=== PATIENT | male | born 1940 | race Caucasian/White ===

== ENCOUNTER 2016-06-12 13:01 | Observation (INO) ==
[2016-06-12] MEDS ORDERED: Nitroglycerin 0.4 MG TAB.SUBL SL ONE (13:40)
[2016-06-12] MEDS ORDERED: Aspirin 81 MG TAB.CHEW PO ONE (13:40)
--- NOTE | 2016-06-12 13:56 | Emergency Department Note ---
Disposition Clinical Impression: Chest pain Qualifiers: Chest pain type: precordial pain Qualified Code(s): R07.2 - Precordial pain Disposition: Admitted As Inpatient Condition: Fair Chest Pain HPI - General Chief Complaint: ED Chest Pain Stated Complaint: Chest pain Time Seen by Provider: 06/12/16 13:32 Source: patient Limitations: no limitations Vital Signs Reviewed: Yes Nursing Notes Reviewed: Yes - History of Present Illness HPI Narrative: Mr. Taylor, a 75 yo male, presents from home by POV with chief complaint chest pain. Onset 5 days ago and previously intermittent. Located focally over his left chest. Described as sharp stabbing, nonradiating. Patient has chronic weakness and dyspnea which have not been worsened over this time period. Patient states his pain is improved with nitroglycerin. Patient has this pain at rest and it is worsened by mild exertion. Patient currently on dual antiplatelet therapy: aspirin, effient. Patient also on Ranexa. PMH: CAD, hypertension, hyperlipidemia. Patient states he has had 10 stents, most recent placed February. States that during the month of February 2016 he had 2 heart attacks. Data Coordinator: Dr. Figueroa. Severity scale (1-10): 0 - Related Data Home Medications Medication Instructions Recorded Confirmed Amlodipine Besylate 10 mg PO DAILY 12/12/15 06/12/16 Docusate [Colace] 100 mg PO BID PRN 12/12/15 06/12/16 Ergocalciferol (VITAMIN D2) 50,000 unit PO Q2W 12/12/15 06/12/16 [Vitamin D2 (50,000 UNIT)] GlipiZIDE [Glipizide] 10 mg PO BID 12/12/15 06/12/16 Insulin Glargine [Lantus] 85 unit SQ HS 12/12/15 06/12/16 Isosorbide MONOnitrate [Isosorbide 120 mg PO QAM 12/12/15 06/12/16 Mononitrate ER] Lisinopril [Zestril] 5 mg PO DAILY 12/12/15 06/12/16 Loratadine [Claritin] 10 mg PO HS 12/12/15 06/12/16 Metformin [Glucophage] 500 mg PO TIDWM 12/12/15 06/12/16 Metoprolol [Lopressor] 100 mg PO BID 12/12/15 06/12/16 Nitroglycerin [Nitrostat] 0.4 mg SL Q5M PRN 12/12/15 06/12/16 [place]-3/Dha/Epa/Fish Oil [Fish Oil 2 each PO QAM 12/12/15 06/12/16 1,000 mg Softgel] Polyvinyl Alcohol [Artificial 1 drop BOTH EYES QID 12/12/15 06/12/16 Tears] Potassium Chloride [K-Tab ER] 10 meq PO DAILY 12/12/15 06/12/16 Rosuvastatin [Crestor] 40 mg PO DAILY 12/12/15 06/12/16 Tamsulosin [Flomax] 0.4 mg PO HS 12/12/15 06/12/16 Amitriptyline [Elavil] 50 mg PO HS 06/12/16 06/12/16 Aspirin Enteric Coated [Aspirin EC] 81 mg PO DAILY 06/12/16 06/12/16 Omeprazole [PriLOSEC] 20 mg PO DAILY 06/12/16 06/12/16 Ranolazine [Ranexa] 500 mg PO BID 06/12/16 06/12/16 Previous Rx's Medication Instructions Recorded Prasugrel [Effient] 10 mg PO DAILY #30 tablet 02/07/16 Allergies Allergy/AdvReac Type Severity Reaction Status Date / Time No Known Allergies Allergy Verified 03/03/16 12:08 All systems ED: reviewed and negative except as stated. Constitutional: Denies: fever, chills, weakness Cardiovascular: Reports: chest pain. Denies: palpitations, dyspnea on exertion , orthopnea, edema, syncope Respiratory: Denies: cough, dyspnea Gastrointestinal: Denies: abdominal pain, nausea, vomiting, diarrhea, constipation, hematemesis, melena, hematochezia Musculoskeletal: Reports: back pain. Denies: neck pain Integumentary: Denies: rash Neurological: Denies: headache, weakness, numbness, paresthesias, confusion, vertigo Hematological/Lymphatic: Reports: easy bleeding, easy bruising Chest Pain PMH - Past Medical History Medical history: Reports: diabetes, hypertension, myocardial infarction Surgical history: Reports: coronary bypass (CABG) Psychiatric history: Reports: no psych history - Social History Smoking Status: Never smoker Alcohol use: Reports: none Drug use: Reports: none Physical Exam General: Patient is alert, oriented, and in no acute distress. HEENT: No facial asymmetry. Head is normocephalic and atraumatic. Trachea midline. Cardiovascular: Heart regular rate and rhythm without clicks, rubs, gallops, or murmurs. No JVD. PMI nondisplaced. No pedal edema. Evidence of sternotomy from CABG. Radial and posterior tibial pulses 2+. Respiratory: Symmetric chest rise with good respiratory effort. Bilateral breath sounds are clear without wheezing, crackles, or rhonchi. Abdomen: Bowel sounds present normoactive x-4 quadrants. Abdomen is soft, nondistended, and nontender. No organomegaly noted. Psych: Patient's affect is appropriate for situation. - General Limitations: no limitations General appearance: alert, in no apparent distress Course Course Narrative: Chest pain workup. Anticipate admission for chest pain, ACS rule out. Patient currently has chest pain; will begin nitroglycerin. Nitroglycerin trial: First nitroglycerin to patient's pain from 01/28-10/28 however it took his systolic blood pressure for 140s down to 100. Will discontinue nitroglycerin trial after the one dose due to concerns of blood pressure. Will provide Fentanyl with IV fluids. Cath 12/12/16 -Severe 3vv CAD. -Mild-moderate LV dysfunction. EF 40%. Laboratory today is relatively unremarkable; specifically troponin negative. There was a slight elevation in BNP however it was not significantly elevated and patient displays no signs of pulmonary edema or peripheral edema. 15:[address] Burroughs who agrees to accept the patient to his service. Vital Signs Temperature 97.8 F 06/12/16 13:12 Pulse Rate 100 06/12/16 13:12 Respiratory Rate 16 06/12/16 13:12 Blood Pressure 138/79 06/12/16 13:12 O2 Sat by Pulse Oximetry 100 06/12/16 13:12 Temperature 97.7 F 06/12/16 16:29 Pulse Rate 72 06/12/16 16:29 Respiratory Rate 16 06/12/16 16:29 Blood Pressure 147/66 06/12/16 16:29 O2 Sat by Pulse Oximetry 98 06/12/16 16:29 Oxygen Delivery Oxygen Delivery Room Air Chest Pain - Lab Data Result diagrams: 06/12/16 14:07 06/12/16 14:07 Lab Results 02/06/12/16 06/12/16 Range/Units 14:07 14:07 14:07 WBC 7.4 (4.3-11.1) K/mcL RBC 4.46 (4.19-5.50) M/mcL Hgb 10.7 L (12.9-16.9) g/dL Hct 35.1 L (37.5-50.1) % MCV 78.7 L (83.0-100.0) fL MCH 24.0 L (28.0-33.3) pg MCHC 30.5 L (31.6-35.5) g/dL RDW 15.7 H (11.5-14.5) % Plt Count 176 (140-400) K/mcL MPV 9.6 (9.4-12.4) fL Immature Gran % 0.4 (0-4) % Seg Neutrophils % 71.4 % Lymphocytes % 19.2 % Monocytes % 7.4 % Eosinophils % 1.3 % Basophils % 0.3 % Neutrophils # 5.3 (1.6-8.9) K/mcL Lymphocytes # 1.4 (0.6-4.6) K/mcL Monocytes # 0.6 (0.0-1.3) K/mcL Eosinophils # 0.1 (0.0-0.6) K/mcL Basophils # 0.0 (0.0-0.2) K/mcL PT 13.3 H (9.4-12.1) Seconds INR 1.2 APTT 28.3 (26.0-36.0) Seconds Sodium (136-145) mEq/L Potassium (3.5-4.5) mEq/L Chloride (98-109) mEq/L Carbon Dioxide (19-29) mEq/L BUN (8-26) mg/dL Creatinine (0.72-1.25) mg/dL Est GFR ( Amer) (> 60) Est GFR (Non-Af Amer) (> 60) BUN/Creatinine Ratio (6-26) Glucose (70-99) mg/dL Est Mean Plasma Glucose mg/dl Hemoglobin A1c ( - 5.6) % Calculated Osmolality (280-300) Calcium (8.6-10.8) mg/dL Troponin I (0-0.03) ng/mL B-Natriuretic Peptide 126 H (0-100) pg/mL 02/22/17 02/22/17 02/22/17 Range/Units 14:07 14:07 14:14 WBC (4.3-11.1) K/mcL RBC (4.19-5.50) M/mcL Hgb (12.9-16.9) g/dL Hct (37.5-50.1) % MCV (83.0-100.0) fL MCH (28.0-33.3) pg MCHC (31.6-35.5) g/dL RDW (11.5-14.5) % Plt Count (140-400) K/mcL MPV (9.4-12.4) fL Immature Gran % (0-4) % Seg Neutrophils % % Lymphocytes % % Monocytes % % Eosinophils % % Basophils % % Neutrophils # (1.6-8.9) K/mcL Lymphocytes # (0.6-4.6) K/mcL Monocytes # (0.0-1.3) K/mcL Eosinophils # (0.0-0.6) K/mcL Basophils # (0.0-0.2) K/mcL PT (9.4-12.1) Seconds INR APTT (26.0-36.0) Seconds Sodium 139 (136-145) mEq/L Potassium 4.0 (3.5-4.5) mEq/L Chloride 108 (98-109) mEq/L Carbon Dioxide 24 (19-29) mEq/L BUN 20 (8-26) mg/dL Creatinine 0.89 (0.72-1.25) mg/dL Est GFR ( Amer) > 60 (> 60) Est GFR (Non-Af Amer) > 60 (> 60) BUN/Creatinine Ratio 22 (6-26) Glucose 89 (70-99) mg/dL Est Mean Plasma Glucose 197 mg/dl Hemoglobin A1c 8.5 H ( - 5.6) % Calculated Osmolality 290 (280-300) Calcium 9.2 (8.6-10.8) mg/dL Troponin I 0.02 (0-0.03) ng/mL B-Natriuretic Peptide (0-100) pg/mL - Radiology Data Radiology results reviewed: Yes I reviewed the patient's radiology results. Chest X-Ray 06/12/16 13:32 IMPRESSION: No acute cardiopulmonary disease. D/ / Stan Ayala MD / Stan Ayala MD Interpreting Provider: Stan Ayala MD - EKG Data EKG attestation: Yes I reviewed and interpreted this EKG. EKG results narrative: EKG dated 06/12/16 interpreted as sinus rhythm with a rate of 81. Q waves present in lead 2. T-wave flattening in V5 and V6. Normal intervals OH 192, QRS 108, QT/QTC 352/39. Left axis. No previous EKG for comparison. Attestation Statement - Attestation Attestation: I examined this patient and my medical decision-making was reviewed with the OPEN DEVELOPER OPERATOR/PA/Advanced Practice Nurse/Resident Physician. I agree with the documented findings, disposition and treatment plan as described except to the extent set forth below. Patient to the emergency department she complaint of chest pain. Patient states he was sitting in his car and experienced stabbing pain in left side of his chest that was nonradiating. He states it resolved after nitroglycerin. Patient states he has an extensive history with heart attacks. States he had 2 of them in February. He states he has 10 stents. On exam he is sitting up in bed in no acute distress. Lungs are clear. Plan. Cardiac workup and likely observation.
[2016-06-12] MEDS ORDERED: *HR* FentaNYL (PF) 100 MCG/2 ML VIAL IVP ONE (14:15)
[2016-06-12] MEDS ORDERED: 0.9 % Sodium Chloride 1,000 ML IVC ONE (14:15)
[2016-06-12 14:19] LABS: Basophils % 0.3 %; Eosinophils # 0.1 K/mcL (0.0-0.6); Eosinophils % 1.3 %; Hematocrit 35.1 % (37.5-50.1); Hemoglobin 10.7 g/dL (12.9-16.9); Immature Granulocytes % 0.4 % (0-4); Lymphocytes # 1.4 K/mcL (0.6-4.6); Lymphocytes % 19.2 %; Mean Corpuscular HGB Conc 30.5 g/dL (31.6-35.5); Mean Corpuscular Volume 78.7 fL (83.0-100.0); Mean Platelet Volume 9.6 fL (9.4-12.4); Monocytes # 0.6 K/mcL (0.0-1.3); Monocytes % 7.4 %; Neutrophils # 5.3 K/mcL (1.6-8.9); Platelet Count 176 K/mcL (140-400); Red Blood Count 4.46 M/mcL (4.19-5.50); Red Cell Distribution Width 15.7 % (11.5-14.5); Segmented Neutrophils % 71.4 %
[2016-06-12 14:30] LABS: BUN/Creatinine Ratio 22 (6-26); Blood Urea Nitrogen 20 mg/dL (8-26); Calcium 9.2 mg/dL (8.6-10.8); Carbon Dioxide 24 mEq/L (19-29); Chloride 108 mEq/L (98-109); Glucose 89 mg/dL (70-99); Osmolality,Calculated 290 (280-300); Sodium 139 mEq/L (136-145); eGFR For African Americans > 60 (> 60); eGFR For Non-African Americans > 60 (> 60)
[2016-06-12 14:32] LABS: INR 1.2; Prothrombin Time 13.3 Seconds (9.4-12.1)
[2016-06-12] MEDS ORDERED: Ondansetron 4 MG/2 ML VIAL IV ONE (14:32)
[2016-06-12 14:35] LABS: Activated Partial Thrombo Time 28.3 Seconds (26.0-36.0)
[2016-06-12] MEDS ORDERED: Ondansetron 4 MG/2 ML VIAL IVP STA (14:58)
--- NOTE | 2016-06-12 15:37 | Cardiology Consult Note ---
Date of Encounter: 06/12/16 Time of Encounter: 15:34 Assessment and Plan Discussion w patient/family: The assessment and plan as outlined above was discussed with the patient and/or family members who expressed understanding and agreement. All questions were answered. Thank you for involving us in the care of your patient. Please call with any questions. Feel this pain is atypical . Suggest: pain control re check EKG in am trend cardiac enzymes , do not think this PE no indications for cath at present will follow d/w ER History of Present Illness Consult date: 06/12/16 History of present illness: Mr. Taylor is a 75 year old male with a known history of CAD, s/p multiple stents , last one being Feb 2016, s/p CABG x2 who now comes in with CP , right sided, increased with DB, and is reproducible on left side . Pt received a NTG in ER with a drop in pressure/ ? relieved by NTG Has been having some CP last few days . no sob, no cough , no pnd, orthopnea Past Med Surg Social Fam HX - Past Medical History Medical history: diabetes, hypertension, myocardial infarction Psychiatric history: no psych history - Past Surgical History Surgical History: coronary bypass (CABG) - Social History Smoking Status: Never smoker Smokeless Tobacco Status: No Alcohol use: none Drug use: none - Family History Mother Hx Family Endocrine Disorder: Yes (DM) Medications and Allergies Amlodipine Besylate 10 mg PO DAILY 12/12/15 [History] Docusate [Colace] 100 mg PO BID PRN 12/12/15 [History] Ergocalciferol (VITAMIN D2) [Vitamin D2 (50,000 UNIT)] 50,000 unit PO Q2W [History] GlipiZIDE [Glipizide] 10 mg PO BID 12/12/15 [History] Insulin Glargine [Lantus] 85 unit SQ HS 12/12/15 [History] Isosorbide MONOnitrate [Isosorbide Mononitrate ER] 120 mg PO QAM 12/12/15 [ History] Lisinopril [Zestril] 5 mg PO DAILY 12/12/15 [History] Loratadine [Claritin] 10 mg PO HS 12/12/15 [History] Metformin [Glucophage] 500 mg PO TIDWM 12/12/15 [History] Metoprolol [Lopressor] 100 mg PO BID 12/12/15 [History] Nitroglycerin [Nitrostat] 0.4 mg SL Q5M PRN 12/12/15 [History] [place]-3/Dha/Epa/Fish Oil [Fish Oil 1,000 mg Softgel] 2 each PO QAM 12/12/15 [ History] Polyvinyl Alcohol [Artificial Tears] 1 drop BOTH EYES QID 12/12/15 [History] Potassium Chloride [K-Tab ER] 10 meq PO DAILY 12/12/15 [History] Rosuvastatin [Crestor] 40 mg PO DAILY 12/12/15 [History] Tamsulosin [Flomax] 0.4 mg PO HS 12/12/15 [History] Prasugrel [Effient] 10 mg PO DAILY #30 tablet 02/07/16 [Rx] Amitriptyline [Elavil] 50 mg PO HS 06/12/16 [History] Aspirin Enteric Coated [Aspirin EC] 81 mg PO DAILY 06/12/16 [History] Omeprazole [PriLOSEC] 20 mg PO DAILY 06/12/16 [History] Ranolazine [Ranexa] 500 mg PO BID 06/12/16 [History] Allergies No Known Allergies Allergy (Verified 03/03/16 12:08) All Systems Review: A 10-system review of systems was performed and is negative for pertinent findings except as documented above in the HPI. - Cardiovascular Cardiovascular: chest pain at rest, chest pain with exertion Physical Examination Vital Signs, Last 4 Hours Temp Pulse Resp BP Pulse Ox 06/12/16 14:12 87 18 100/67 95 06/12/16 13:44 82 18 127/83 97 06/12/16 13:12 97.8 F 100 16 138/79 100 Cardiac: Other (Left sided CP is reproducible ) Results 06/12/16 14:07 06/12/16 14:07 Lab Results 06/12/16 06/12/16 06/12/16 14:07 14:07 14:07 WBC 7.4 Hgb 10.7 L Hct 35.1 L Plt Count 176 INR 1.2 APTT 28.3 Sodium Potassium Chloride Carbon Dioxide BUN Creatinine Glucose Calcium Troponin I B-Natriuretic Peptide 126 H 06/12/16 06/12/16 14:07 14:07 WBC Hgb Hct Plt Count INR APTT Sodium 139 Potassium 4.0 Chloride 108 Carbon Dioxide 24 BUN 20 Creatinine 0.89 Glucose 89 Calcium 9.2 Troponin I 0.02 B-Natriuretic Peptide - EKG Interpretation EKG results cardiology: no diagnostic ischemia (no acute changes, compared with last one) Consult Discharge Plan - Plan [facility]errals: [facility]Primary Care Provider[facility] -
[2016-06-12] MEDS ORDERED: *HR* Morphine 2 MG/ML SYRINGE IV ONE (15:49)
[2016-06-12] MEDS ORDERED: Ondansetron ODT 4 MG TAB.RAPDIS SL PRN (15:53)
[2016-06-12] MEDS ORDERED: Naloxone 0.4 MG/ML INJ IVP PRN (15:53)
[2016-06-12] MEDS ORDERED: Nitroglycerin 0.4 MG TAB.SUBL SL PRN (16:02)
[2016-06-12] MEDS ORDERED: Dextrose Gel 15 GM PO PRN ×2 (16:08)
[2016-06-12] MEDS ORDERED: *HR* Dextrose 50 % in Water (Syg) 50 ML SYRINGE IVP PRN (16:08)
[2016-06-12] MEDS ORDERED: D5% in Water 1,000 ML IV PRN (16:08)
--- NOTE | 2016-06-12 16:13 | Internal Med History&Physical ---
Date of Encounter: 06/12/16 Time of Encounter: 16:10 Assessment and Plan (1) Chest pain Current visit: No Status: Acute Patient reporting sharp, stabbing pain to left chest, non-radiating, somewhat relieved by nitro. Initial troponin negative at 0.02. EKG showed no ischemic changes compared to previous EKG. 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 Qualifiers: Chest pain type: precordial pain Qualified Code(s): R07.2 - Precordial pain (2) CAD (coronary artery disease) Current visit: No Status: Acute Patient with significant coronary artery disease history with reported 10 stents placed, most recently a NATALIA to his LAD in 01/2016, and 2 vessel CABG in July of 2014. He follows with Dr. Huerta as an outpatient. Cardiology consulted and do not feel he needs emergent cath. Continue home doses of Aspirin, Effient for dual anti-platelet therapy Continue home doses of Ranexa, metoprolol, and crestor Qualifiers: Coronary Disease-Associated Artery/Lesion type: [place] artery [place] vs. transplanted heart: [place] heart Associated angina: with stable angina Qualified Code(s): I25.118 - Atherosclerotic heart disease of [place] coronary artery with other forms of angina pectoris (3) IDDM (insulin dependent diabetes mellitus) Current visit: No Status: Chronic diabetic diet check blood sugars ACHS continue home basal dose of insulin Levemir 85u HS sliding scale correction dose ACHS hypoglycemic protocol. (4) HTN (hypertension) Current visit: No Status: Chronic continue home doses of amlodipine, lisinopril, metoprolol and ranexa. Qualifiers: Hypertension type: essential hypertension Qualified Code(s): I10 - Essential (primary) hypertension (5) DVT prophylaxis Current visit: No Status: Acute up to chair BID anti-embolic stockings Lovenox 40mg SQ daily Internal Medicine - H&P: HPI Chief complaint: chest pain Admitted From: Emergency Dept Plans for Post Hospital Care: Home History of present illness: Mr. Taylor is a 75 year old male with HTN, hyperlipidemia, type 2 diabetes, coronary artery disease s/p 2-vessel CABG 2014 and multiple coronary stents, most recently 01/2016, who presented to the ED today with chest pain. He reports the pain is a sharp, stabbing pain that first started on Friday. The pain would come and go, until today, when it was unrelieved and he decided to come in to the ED. He reports the pain does not radiate, was mildly relieved by nitro given in the ED. He reports the pain is accompanied by shortness of breath and numbness in bilateral hands, but denies any palpitations, lightheadedness. He has had some nausea, but denies abdominal pain, diarrhea, fever, chills, sweats. He is also reporting right sided low back pain that also comes and goes and is exacerbated by movement. Evaluation in the ED included troponin, which was negative at 0.02, EKG with no ischemic changes from previous EKG. Nitro was trialed on patient, but his blood pressure dropped , and he was given fentanyl and morphine for his pain. On exam, patient alert and oriented, in no distress. Heart has regular rate and rhythm, lungs clear to auscultation, patient has reproducible pain on palpation over right posterior hip. He is satting 99% on room air. Past Med Surg Social Fam HX - Past Medical History Source: patient Medical history: coronary artery disease, diabetes, GERD, hyperlipidemia, hypertension, myocardial infarction Psychiatric history: no psych history - Past Surgical History Surgical History: angioplasty/stent, coronary bypass (CABG), orthopedic, other ( right toe amputation) - Social History Smoking Status: Former smoker (remote) Smokeless Tobacco Status: No Alcohol use: none Drug use: none - Family History Mother Living Status: Hx Family Endocrine Disorder: Yes (DM) Father Living Status: Age at : 84 Cause of : [place] Brother Living Status: Cause of : CHF Sister Living Status: Hx Family Cardiac Disorders: Yes Hx Family Endocrine Disorder: Yes (diabetes) Internal Medicine - H&P: Meds Amlodipine Besylate 10 mg PO DAILY 12/12/15 [History] Docusate [Colace] 100 mg PO BID PRN 12/12/15 [History] Ergocalciferol (VITAMIN D2) [Vitamin D2 (50,000 UNIT)] 50,000 unit PO Q2W [History] GlipiZIDE [Glipizide] 10 mg PO BID 12/12/15 [History] Insulin Glargine [Lantus] 85 unit SQ HS 12/12/15 [History] Isosorbide MONOnitrate [Isosorbide Mononitrate ER] 120 mg PO QAM 12/12/15 [ History] Lisinopril [Zestril] 5 mg PO DAILY 12/12/15 [History] Loratadine [Claritin] 10 mg PO HS 12/12/15 [History] Metformin [Glucophage] 500 mg PO TIDWM 12/12/15 [History] Metoprolol [Lopressor] 100 mg PO BID 12/12/15 [History] Nitroglycerin [Nitrostat] 0.4 mg SL Q5M PRN 12/12/15 [History] [place]-3/Dha/Epa/Fish Oil [Fish Oil 1,000 mg Softgel] 2 each PO QAM 12/12/15 [ History] Polyvinyl Alcohol [Artificial Tears] 1 drop BOTH EYES QID 12/12/15 [History] Potassium Chloride [K-Tab ER] 10 meq PO DAILY 12/12/15 [History] Rosuvastatin [Crestor] 40 mg PO DAILY 12/12/15 [History] Tamsulosin [Flomax] 0.4 mg PO HS 12/12/15 [History] Prasugrel [Effient] 10 mg PO DAILY #30 tablet 02/07/16 [Rx] Amitriptyline [Elavil] 50 mg PO HS 06/12/16 [History] Aspirin Enteric Coated [Aspirin EC] 81 mg PO DAILY 06/12/16 [History] Omeprazole [PriLOSEC] 20 mg PO DAILY 06/12/16 [History] Ranolazine [Ranexa] 500 mg PO BID 06/12/16 [History] Allergies No Known Allergies Allergy (Verified 03/03/16 12:08) All Systems PM: A 10-system review of systems was performed and is negative for pertinent findings except as documented above in the HPI. - Constitutional Constitutional: no chills, no fever(s), no night sweats - EENT Eyes: no change in vision, no discharge, no pain, no photophobia Ears: no ear discharge, no ear pain, no tinnitus Nose, mouth and throat: no dysphagia, no nasal discharge, no neck pain, no sore throat - Cardiovascular Cardiovascular ROS IM: chest pain, dyspnea, no diaphoresis, no lightheadedness, no palpitations, no syncope - Respiratory Respiratory: no cough, no dyspnea, no wheezing, no excessive phlegm production - Gastrointestinal Gastrointestinal: nausea, no abdominal pain, no diarrhea, no hematemesis, no hematochezia, no melena, no vomiting - Musculoskeletal Musculoskeletal ROS IM: back pain, no numbness, no tingling - Integumentary Integumentary IM: no rash, no unusual bruising - Neurological Neurological ROS: numbness (bilateral hands), no confusion, no convulsions, no focal weakness, no tingling, no tremor(s) - Hematologic/Lymphatic Hematologic/Lymphatic: no easy bruising - Constitutional Vitals: Temp Pulse Resp BP Pulse Ox 97.8 F 87 18 149/70 95 06/12/16 13:12 06/12/16 14:12 06/12/16 16:07 06/12/16 16:07 06/12/16 14:12 General appearance: Present: A&O X 3, no acute distress - Head Head exam: Present: atraumatic, normocephalic - Eye Eye exam: Present: PERRL, conjuntiva pink, sclera anicteric Pupils: Present: PERRL - Neck Neck exam general surgery: Present: supple, trachea midline. Absent: lymphadenopathy - Respiratory Respiratory exam: Present: CTAB. Absent: accessory muscle use, rales, rhonchi, wheezes - Cardiovascular Cardiovascular exam: Present: RRR, +S1, +S2. Absent: diastolic murmur, gallop, rubs, systolic murmur - GI/Abdominal GI/Abdominal exam: Present: normal bowel sounds, soft, no peritoneal signs. Absent: distended, tenderness - Extremities Exam Extremities exam: Present: warm, radial pulses palpable and symetrical. Absent : calf tenderness, cyanotic, pedal edema - Back Exam Back exam: Present: tenderness (right posterior hip) - Neurological Exam Neurological exam: Present: CN II-XII intact, oriented X3, no focal deficits. Absent: facial droop, speech deficit - Skin Skin exam: Present: dry, intact Internal Med - H&P Results - Labs CBC & Chem 7: 06/12/16 14:07 06/12/16 14:07 Labs: All Lab Results (24 Hours) 06/12/16 06/12/16 06/12/16 Range/Units 14:07 14:07 14:07 WBC 7.4 (4.3-11.1) K/mcL RBC 4.46 (4.19-5.50) M/mcL Hgb 10.7 L (12.9-16.9) g/dL Hct 35.1 L (37.5-50.1) % MCV 78.7 L (83.0-100.0) fL MCH 24.0 L (28.0-33.3) pg MCHC 30.5 L (31.6-35.5) g/dL RDW 15.7 H (11.5-14.5) % Plt Count 176 (140-400) K/mcL MPV 9.6 (9.4-12.4) fL Immature Gran % 0.4 (0-4) % Seg Neutrophils % 71.4 % Lymphocytes % 19.2 % Monocytes % 7.4 % Eosinophils % 1.3 % Basophils % 0.3 % Neutrophils # 5.3 (1.6-8.9) K/mcL Lymphocytes # 1.4 (0.6-4.6) K/mcL Monocytes # 0.6 (0.0-1.3) K/mcL Eosinophils # 0.1 (0.0-0.6) K/mcL Basophils # 0.0 (0.0-0.2) K/mcL PT 13.3 H (9.4-12.1) Seconds INR 1.2 APTT 28.3 (26.0-36.0) Seconds Sodium (136-145) mEq/L Potassium (3.5-4.5) mEq/L Chloride (98-109) mEq/L Carbon Dioxide (19-29) mEq/L BUN (8-26) mg/dL Creatinine (0.72-1.25) mg/dL Est GFR ( Amer) (> 60) Est GFR (Non-Af Amer) (> 60) BUN/Creatinine Ratio (6-26) Glucose (70-99) mg/dL Calculated Osmolality (280-300) Calcium (8.6-10.8) mg/dL Troponin I (0-0.03) ng/mL B-Natriuretic Peptide 126 H (0-100) pg/mL 17 06/12/16 Range/Units 14:07 14:07 WBC (4.3-11.1) K/mcL RBC (4.19-5.50) M/mcL Hgb (12.9-16.9) g/dL Hct (37.5-50.1) % MCV (83.0-100.0) fL MCH (28.0-33.3) pg MCHC (31.6-35.5) g/dL RDW (11.5-14.5) % Plt Count (140-400) K/mcL MPV (9.4-12.4) fL Immature Gran % (0-4) % Seg Neutrophils % % Lymphocytes % % Monocytes % % Eosinophils % % Basophils % % Neutrophils # (1.6-8.9) K/mcL Lymphocytes # (0.6-4.6) K/mcL Monocytes # (0.0-1.3) K/mcL Eosinophils # (0.0-0.6) K/mcL Basophils # (0.0-0.2) K/mcL PT (9.4-12.1) Seconds INR APTT (26.0-36.0) Seconds Sodium 139 (136-145) mEq/L Potassium 4.0 (3.5-4.5) mEq/L Chloride 108 (98-109) mEq/L Carbon Dioxide 24 (19-29) mEq/L BUN 20 (8-26) mg/dL Creatinine 0.89 (0.72-1.25) mg/dL Est GFR ( Amer) > 60 (> 60) Est GFR (Non-Af Amer) > 60 (> 60) BUN/Creatinine Ratio 22 (6-26) Glucose 89 (70-99) mg/dL Calculated Osmolality 290 (280-300) Calcium 9.2 (8.6-10.8) mg/dL Troponin I 0.02 (0-0.03) ng/mL B-Natriuretic Peptide (0-100) pg/mL
[2016-06-12] MEDS: Insulin LISPRO 300 UNITS/3 ML VIAL SQ SCH (16:38)
[2016-06-12] MEDS: Artificial Tears SOLN 15 ML BOTTLE BOTH EYES SCH ×2 (16:58→20:44)
[2016-06-12] MEDS: *HR* HYDROcodone/Acet 5/325 mg TABLET PO PRN ×2 (17:05→22:40)
[2016-06-12 17:09] LABS: Hemoglobin A1C 8.5 %
[2016-06-12] MEDS: Ranolazine 500 MG TAB.ER.12H PO SCH (20:12)
[2016-06-12] MEDS: *HR* Morphine 2 MG/ML SYRINGE IVP PRN (20:13)
[2016-06-12] MEDS: Metoprolol 100 MG TABLET PO SCH (20:43)
[2016-06-12] MEDS ORDERED: Loratadine 10 MG TABLET PO SCH (21:00)
[2016-06-12] MEDS ORDERED: Insulin DETEMIR 100 UNIT/ML X5UNITS SQ SCH (21:00)
[2016-06-12] MEDS ORDERED: Insulin LISPRO 300 UNITS/3 ML VIAL SQ SCH (21:00)
[2016-06-12] MEDS ORDERED: Ibuprofen 600 MG TABLET PO PRN (23:46)
[2016-06-13] MEDS: *HR* Morphine 2 MG/ML SYRINGE IVP PRN ×2 (00:19→08:55)
[2016-06-13 05:28] LABS: Basophils % 0.6 %; Eosinophils # 0.1 K/mcL (0.0-0.6); Eosinophils % 1.4 %; Hematocrit 32.3 % (37.5-50.1); Hemoglobin 9.9 g/dL (12.9-16.9); Immature Granulocytes % 1.1 % (0-4); Immature Platelets 2.7 % (1.1-6.1); Lymphocytes # 1.5 K/mcL (0.6-4.6); Lymphocytes % 23.5 %; Mean Corpuscular HGB Conc 30.7 g/dL (31.6-35.5); Mean Corpuscular Hemoglobin 24.3 pg (28.0-33.3); Mean Corpuscular Volume 79.2 fL (83.0-100.0); Mean Platelet Volume 9.9 fL (9.4-12.4); Monocytes # 0.5 K/mcL (0.0-1.3); Monocytes % 7.8 %; Neutrophils # 4.3 K/mcL (1.6-8.9); Platelet Count 163 K/mcL (140-400); Red Blood Count 4.08 M/mcL (4.19-5.50); Red Cell Distribution Width 15.8 % (11.5-14.5); Segmented Neutrophils % 65.6 %
[2016-06-13 05:42] LABS: BUN/Creatinine Ratio 19 (6-26); Blood Urea Nitrogen 18 mg/dL (8-26); Calcium 8.4 mg/dL (8.6-10.8); Carbon Dioxide 22 mEq/L (19-29); Chloride 108 mEq/L (98-109); Glucose 194 mg/dL (70-99); Osmolality,Calculated 293 (280-300); Potassium 4.1 mEq/L (3.5-4.5); Sodium 138 mEq/L (136-145); eGFR For African Americans > 60 (> 60); eGFR For Non-African Americans > 60 (> 60)
[2016-06-13] MEDS ORDERED: *HR* Enoxaparin 40 MG/0.4 ML SYRINGE SQ SCH (07:00)
[2016-06-13] MEDS: Artificial Tears SOLN 15 ML BOTTLE BOTH EYES SCH ×2 (08:56→11:58)
[2016-06-13] MEDS: Ranolazine 500 MG TAB.ER.12H PO SCH (08:57)
[2016-06-13] MEDS: Metoprolol 100 MG TABLET PO SCH (08:57)
[2016-06-13] MEDS: Insulin LISPRO 300 UNITS/3 ML VIAL SQ SCH ×2 (08:57→11:57)
[2016-06-13] MEDS ORDERED: Isosorbide MONOnitrate (24 HR) 60 MG TAB.ER.24H PO SCH (09:00)
[2016-06-13] MEDS ORDERED: Aspirin Enteric Coated 81 MG Tablet PO SCH (09:00)
[2016-06-13] MEDS ORDERED: amLODIPine 5 MG TABLET PO SCH (09:00)
--- NOTE | 2016-06-13 11:15 | Cardiology Progress Note ---
<Thomas Gaspar - Last Filed: 06/13/16 11:12> Date of Encounter: 06/13/16 Time of Encounter: 09:00 Assessment and Plan (1) Atypical chest pain Current Visit: Yes Status: Acute Chest pain worse with palpation. Atypical in nature. Troponins x3 negative. Initial and 2 repeat EKG's negative for new ischemia. We will sign off at this time. Patient to keep already established appointment with Dr. Huerta. (2) CAD (coronary artery disease) Current Visit: No Status: Chronic Qualifiers: Coronary Disease-Associated Artery/Lesion type: [place] artery [place] vs. transplanted heart: [place] heart Associated angina: with stable angina Qualified Code(s): I25.118 - Atherosclerotic heart disease of [place] coronary artery with other forms of angina pectoris (3) IDDM (insulin dependent diabetes mellitus) Current Visit: No Status: Chronic Discussion w patient/family: The assessment and plan as outlined above was discussed with the patient and/or family members who expressed understanding and agreement. All questions were answered. Thank you for involving us in the care of your patient. Please call with any questions. Subjective Principal diagnosis: Chest pain Interval history: Patient's chest pain remains atypical. Still present. No other complaints. Pain improved overall. Objective Vital Signs, Last 4 Hours Temp Pulse Resp BP Pulse Ox 06/13/16 08:22 97.5 F L 78 14 158/88 95 General: Conversant, No Apparent Distress HEENT: Atraumatic, Normocephaly, Mucus Membranes Moist Neck: No JVD, Normal carotid pulses Cardiac: Reg Rate and Rhythm, Normal S1 and S2, No Murmur Lungs: Normal Breath Sounds, No Wheeze, Rales, Rhonchi Neuro: Alert and responsive, No focal deficits noted Abdomen: Soft, Non-Tender Skin: No rashes noted on visualized skin Musculoskeletal: No Chest Wall Tenderness Extremities: No Clubbing, No Cyanosis, No Edema, Normal Pulses Results 06/13/16 03:20 06/13/16 03:20 Lab Results 06/12/16 06/13/16 06/13/16 19:55 02:00 03:20 WBC 6.5 Hgb 9.9 L Hct 32.3 L Plt Count 163 Sodium Potassium Chloride Carbon Dioxide BUN Creatinine Glucose Calcium Troponin I 0.02 0.03 06/13/16 03:20 WBC Hgb Hct Plt Count Sodium 138 Potassium 4.1 Chloride 108 Carbon Dioxide 22 BUN 18 Creatinine 0.95 Glucose 194 H Calcium 8.4 L Troponin I - Imaging and Cardiology Chest Xray: report reviewed - EKG Interpretation EKG results cardiology: personally reviewed, sinus rhythm, no diagnostic ischemia - VTE Documentation of Mechanical Device: Graduated compression elastic hosiery Consult Discharge Plan - Plan Additional Instructions: Follow-up with primary care provider within one to 2 weeks, follow-up with cardiology as scheduled [facility]errals: [facility] [Primary Care Provider] - (Please follow up with your Primary Care Provider in the next 5-7 days. ) Collins Huerta, [Partnered Physician] - - Attending Attestation I examined this patient and my medical decision-making was reviewed with the Resident Physician. I agree with the documented findings, disposition and treatment plan as described except to the extent set forth below. <Tushar Roman - Last Filed: 06/13/16 12:54> Date of Encounter: 06/13/16 Assessment and Plan Discussion w patient/family: The assessment and plan as outlined above was discussed with the patient and/or family members who expressed understanding and agreement. All questions were answered. Thank you for involving us in the care of your patient. Please call with any questions. Objective Vital Signs, Last 4 Hours Temp Pulse Resp BP Pulse Ox 06/13/16 11:16 97.7 F 76 14 111/63 97 Results 06/13/16 03:20 06/13/16 03:20 Lab Results 06/12/16 06/13/16 06/13/16 19:55 02:00 03:20 WBC 6.5 Hgb 9.9 L Hct 32.3 L Plt Count 163 Sodium Potassium Chloride Carbon Dioxide BUN Creatinine Glucose Calcium Troponin I 0.02 0.03 06/13/16 03:20 WBC Hgb Hct Plt Count Sodium 138 Potassium 4.1 Chloride 108 Carbon Dioxide 22 BUN 18 Creatinine 0.95 Glucose 194 H Calcium 8.4 L Troponin I Attestation Statement - Attestation Attestation: I examined this patient and my medical decision-making was reviewed with the DIABETES CLINICAL MANAGER/PA/Advanced Practice Nurse/Resident Physician. I agree with the documented findings, disposition and treatment plan as described except to the extent set forth below. Pt's CP is better, less sob, no real angina VSS JVD: 6-7 cm Chest : Clear CVS: RRR EKG: no new changes Non cardiac CP ok for d/c see primary Retail Selling Specialist in office ? increase Ranexa for microvascular angina D/w PT
[2016-06-13 11:16] VITALS: BP 111/63
--- NOTE | 2016-06-13 11:57 | Discharge Summary ---
Date of Encounter: 06/13/16 Time of Encounter: 08:30 - Discharge Diagnosis (1) Atypical chest pain Priority: Primary Status: Acute Comments: Reproducible with palpation and consistent with musculoskeletal etiology. Troponins negative 3. Chest x-ray unremarkable. He was seen and evaluated by cardiology who cleared him for outpatient follow-up. (2) DVT prophylaxis Priority: Primary Status: Acute Comments: Subcutaneous Lovenox while admitted (3) GERD (gastroesophageal reflux disease) Priority: Secondary Status: Chronic Comments: Denied current symptoms while admitted Qualifiers: Esophagitis presence: esophagitis presence not specified Qualified Code(s) : K21.9 - Gastro-esophageal reflux disease without esophagitis (4) CAD (coronary artery disease) Priority: Secondary Status: Chronic Qualifiers: Coronary Disease-Associated Artery/Lesion type: [place] artery [place] vs. transplanted heart: [place] heart Associated angina: with stable angina Qualified Code(s): I25.118 - Atherosclerotic heart disease of [place] coronary artery with other forms of angina pectoris (5) HTN (hypertension) Priority: Secondary Status: Chronic Comments: Relatively well controlled, borderline hypertensive on day of discharge however became normotensive with the resumption of his regular home medications. Recommended a blood pressure checks at home, and following up outpatient. Qualifiers: Hypertension type: essential hypertension Qualified Code(s): I10 - Essential (primary) hypertension (6) IDDM (insulin dependent diabetes mellitus) Priority: Secondary Status: Chronic Comments: Moderately controlled with an A1c of 8.5%. Recommend continued follow up outpatient. - Discharge Medications Home Medications: Amlodipine Besylate 10 mg PO DAILY 12/12/15 [History] Docusate [Colace] 100 mg PO BID PRN 12/12/15 [History] Ergocalciferol (VITAMIN D2) [Vitamin D2 (50,000 UNIT)] 50,000 unit PO Q2W [History] GlipiZIDE [Glipizide] 10 mg PO BID 12/12/15 [History] Insulin Glargine [Lantus] 85 unit SQ HS 12/12/15 [History] Isosorbide MONOnitrate [Isosorbide Mononitrate ER] 120 mg PO QAM 12/12/15 [ History] Lisinopril [Zestril] 5 mg PO DAILY 12/12/15 [History] Loratadine [Claritin] 10 mg PO HS 12/12/15 [History] Metformin [Glucophage] 500 mg PO TIDWM 12/12/15 [History] Metoprolol [Lopressor] 100 mg PO BID 12/12/15 [History] Nitroglycerin [Nitrostat] 0.4 mg SL Q5M PRN 12/12/15 [History] Raymond-3/Dha/Epa/Fish Oil [Fish Oil 1,000 mg Softgel] 2 each PO QAM 12/12/15 [ History] Polyvinyl Alcohol [Artificial Tears] 1 drop BOTH EYES QID 12/12/15 [History] Potassium Chloride [K-Tab ER] 10 meq PO DAILY 12/12/15 [History] Rosuvastatin [Crestor] 40 mg PO DAILY 12/12/15 [History] Tamsulosin [Flomax] 0.4 mg PO HS 12/12/15 [History] Prasugrel [Effient] 10 mg PO DAILY #30 tablet 02/07/16 [Rx] Amitriptyline [Elavil] 50 mg PO HS 06/12/16 [History] Aspirin Enteric Coated [Aspirin EC] 81 mg PO DAILY 06/12/16 [History] Omeprazole [PriLOSEC] 20 mg PO DAILY 06/12/16 [History] Ranolazine [Ranexa] 500 mg PO BID 06/12/16 [History] Allergies/Adverse Reactions: Allergies No Known Allergies Allergy (Verified 03/03/16 12:08) Procedures/tests Complete & Pending: Procedures Performed prior 72 hours Category Date Time Status ECG 12 lead ECG [ECG] Stat Y 06/13/16 07:52 Ordered Date of admission: 06/12/16 15:54 [facility] physician[facility] Consults: 06/12/16 16:00 Consult to Cardiology [CONS] Routine Comment: Consulting Provider: [facility] [place] Reason for Consult: Chest pain with extensive cardiac history, CABG 2014, stent 01/2016 Call Completed: Yes Discharging clinician: Kelly Grant Anticipated date of discharge: 06/13/16 - Patient Status Disposition: Home, Self-Care Condition: Fair Functional capacity at discharge: independent ambulation Overall status at discharge: patient is back to baseline - Discharge Instructions Follow Up With: [facility] [Primary Care Provider] - Collins Huerta DO [Partnered Physician] - Additional Instructions: Follow-up with primary care provider within one to 2 weeks, follow-up with cardiology as scheduled - Diet and Activity Activity: increase activity as tolerated Diet: diabetic diet, low fat, low cholesterol, low salt diet Hospital course: Mr. Taylor is a 75 year old male with past medical history of CAD status post stents 10 and 2 vessel CABG in 2015, hypertension, hyperlipidemia, diabetes. Patient presented to the emergency department chief complaint sharp, stabbing chest pain 4 days. Patient stated the pain was intermittent until the day of presentation when it was unrelieved prompting his presentation to the emergency department. Patient denies radiation of his pain and states it was mildly relieved with nitroglycerin in the emergency department. Associated symptoms include shortness of breath and numbness in bilateral hands. Patient denied any palpitations, lightheadedness. Patient also reported right-sided low back pain that is intermittent and worsened with movement. He states his pain is chronic. Workup in the emergency department unremarkable. Troponins negative 3. Chest x-ray negative. No ischemic changes noted on ECG. Patient was admitted to the hospitalist service for further evaluation and management. Given his coronary artery disease history, cardiology was brought on board. On examination, patient's chest pain is reproducible with palpation. Cardiology cleared him for outpatient follow-up. ACS ruled out. He was also instructed to follow-up with his primary care provider regarding his chronic low back pain. Of note, patient was requesting narcotic medication and again he was referred to his primary care provider given the chronicity of this pain. OARRS report negative. He was discharged home in stable condition with close outpatient follow-up recommended. ITS Impressions Chest X-Ray 06/12/16 13:32 IMPRESSION: No acute cardiopulmonary disease. D/ / Stan Ayala MD / Stan Ayala MD Interpreting Provider: Stan Ayala MD - Time Spent with Patient Total time spent providing and/or coordinating discharge services: - Constitutional Vitals: Temp Pulse Resp BP Pulse Ox 97.7 F 76 14 111/63 97 06/13/16 11:16 06/13/16 11:16 06/13/16 11:16 06/13/16 11:16 02/23/17 11:16 General appearance: Present: A&O X 3, pleasant, no acute distress, answers questions appropriately - Head Head exam: Present: atraumatic, normocephalic - Eye Eye exam: Present: PERRL, conjuntiva pink, sclera anicteric Pupils: Present: PERRL - Neck Neck exam general surgery: Present: supple, trachea midline. Absent: lymphadenopathy - Respiratory Respiratory exam: Present: chest wall tenderness, CTAB. Absent: accessory muscle use, rales, respiratory distress, rhonchi, wheezes - Cardiovascular Cardiovascular exam: Present: RRR, +S1, +S2. Absent: diastolic murmur, gallop, rubs, systolic murmur - GI/Abdominal GI/Abdominal exam: Present: normal bowel sounds, soft, no peritoneal signs. Absent: distended, tenderness - Extremities Exam Extremities exam: Present: warm, radial pulses palpable and symetrical. Absent : calf tenderness, cyanotic, pedal edema - Back Exam Back exam: Present: paraspinal tenderness - Neurological Exam Neurological exam: Present: alert, CN II-XII intact, normal gait, oriented X3, no focal deficits, strengths equal and symetr throughout. Absent: pronater drift, facial droop, speech deficit - Skin Skin exam: Present: dry, intact, normal color, warm - VTE Documentation of Mechanical Device: Graduated compression elastic hosiery
--- NOTE | 2016-06-13 18:38 | Electrocardiograph Report ---
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
--- NOTE | 2016-06-13 19:36 | Electrocardiograph Report ---
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
--- NOTE | 2016-06-14 20:04 | Electrocardiograph Report ---
[address] [place] [address] Test Date: 2016-06-13 Pat Name: Frandy Taylor Department: 113 Room: 3B54 Gender: M Manager File: : 1940 Requested By: Thomas Gaspar Order Number: [id number] Reading MD: Collins Huerta DO Measurements Intervals [place] Rate: 72 P: 71 [place]: 214 QRS: -16 QRSD: 129 T: 125 QT: 391 QTc: 416 Interpretive Statements SINUS RHYTHM WITH FIRST DEGREE AV BLOCK POSSIBLE LATERAL MYOCARDIAL INFARCTION, OF INDETERMINATE AGE INFERIOR MYOCARDIAL INFARCTION, OF INDETERMINATE AGE Electronically Signed On 06-14-2016 20:02:46 EST by Collins Huerta DO
== END 2016-06-13 14:26 | disposition home or self-care (01) ==
LOC: EMEROO 13:01 → 3BNU 13:01
PROVIDERS: ADMIT Nurse Practitioner Family; ATTEND Nurse Practitioner Family

== ENCOUNTER 2016-12-19 10:50 | Observation (INO) ==
[2016-12-19] MEDS ORDERED: 0.9 % Sodium Chloride 500 ML IVC ONE (11:06)
[2016-12-19] MEDS ORDERED: Aspirin 81 MG TAB.CHEW PO ONE (11:06)
[2016-12-19 11:16] LABS: Basophils # 0.1 K/mcL (0.0-0.2); Eosinophils # 0.3 K/mcL (0.0-0.6); Eosinophils % 4.1 %; Hematocrit 39.6 % (37.5-50.1); Hemoglobin 13.6 g/dL (12.9-16.9); Immature Granulocytes % 0.3 % (0-4); Lymphocytes # 1.5 K/mcL (0.6-4.6); Lymphocytes % 24.6 %; Mean Corpuscular HGB Conc 34.3 g/dL (31.6-35.5); Mean Corpuscular Hemoglobin 31.6 pg (28.0-33.3); Mean Corpuscular Volume 91.9 fL (83.0-100.0); Mean Platelet Volume 9.6 fL (9.4-12.4); Monocytes # 0.6 K/mcL (0.0-1.3); Monocytes % 9.8 %; Neutrophils # 3.6 K/mcL (1.6-8.9); Platelet Count 117 K/mcL (140-400); Red Blood Count 4.31 M/mcL (4.19-5.50); Red Cell Distribution Width 12.9 % (11.5-14.5); Segmented Neutrophils % 60.2 %
[2016-12-19] MEDS: Nitroglycerin 0.4 MG TAB.SUBL SL ONE ×2 (11:16→12:13)
[2016-12-19 11:23] LABS: INR 1.1; Prothrombin Time 12.1 Seconds (9.4-12.1)
[2016-12-19 11:25] LABS: Activated Partial Thrombo Time 28.9 Seconds (26.0-36.0)
[2016-12-19 11:28] LABS: BUN/Creatinine Ratio 19 (6-26); Blood Urea Nitrogen 19 mg/dL (8-26); Calcium 9.4 mg/dL (8.6-10.8); Carbon Dioxide 24 mEq/L (19-29); Chloride 106 mEq/L (98-109); Glucose 184 mg/dL (70-99); Osmolality,Calculated 289 (280-300); Sodium 136 mEq/L (136-145); eGFR For African Americans > 60 (> 60); eGFR For Non-African Americans > 60 (> 60)
--- NOTE | 2016-12-19 11:30 | Emergency Department Note ---
Disposition Clinical Impression: History of heart artery stent Chest pain Qualifiers: Chest pain type: precordial pain Qualified Code(s): R07.2 - Precordial pain Disposition: Admitted As Inpatient Condition: Fair Time of Disposition: 11:44 Chest Pain HPI - General Chief Complaint: ED Chest Pain Stated Complaint: C/P Time Seen by Provider: 12/19/16 11:06 Source: patient, family Limitations: no limitations Vital Signs Reviewed: Yes Nursing Notes Reviewed: Yes - History of Present Illness HPI Narrative: Patient is a 76-year-old male with a history of MIs 8, stents 10 last stent 1 year ago in February. Patient presents with chest pain 5/10 that started 2 hours ago with radiation up to his left side of his neck and shoulders. Patient complains of numbness and tingling to his hands bilaterally patient states he took his aspirin last night and the rest of his meds currently not on Coumadin. Patient was sent from cardiology by Dr. Huerta of cardiology. This pain started this morning but had a cardiology appointment with Dr. Huerta went to his appointment. Patient discussed pain with Dr. Huerta and Dr. Huerta directed him to come to the ED. Severity scale (1-10): 5 - Related Data Home Medications Medication Instructions Recorded Confirmed Amlodipine Besylate 10 mg PO DAILY 12/12/15 12/19/16 Docusate [Colace] 200 mg PO BID PRN 12/12/15 12/19/16 Ergocalciferol (VITAMIN D2) 50,000 unit PO Q2W 12/12/15 12/19/16 [Vitamin D2 (50,000 UNIT)] Insulin Glargine [Lantus] 88 unit SQ HS 12/12/15 12/19/16 Isosorbide MONOnitrate [Isosorbide 120 mg PO QAM 12/12/15 12/19/16 Mononitrate ER] Loratadine [Claritin] 10 mg PO HS 12/12/15 12/19/16 Metoprolol [Lopressor] 200 mg PO BID 12/12/15 12/19/16 Nitroglycerin [Nitrostat] 0.4 mg SL Q5M PRN 12/12/15 12/19/16 [place]-3/Dha/Epa/Fish Oil [Fish Oil 2 cap PO BID 12/12/15 12/19/16 1,000 mg Softgel] Polyvinyl Alcohol [Artificial 1 drop BOTH EYES QID 12/12/15 12/19/16 Tears] glipiZIDE [Glipizide] 10 mg PO QPM 12/12/15 12/19/16 metFORMIN [Glucophage] 500 mg PO TIDWM 12/12/15 12/19/16 Aspirin Enteric Coated [Aspirin EC] 81 mg PO DAILY 06/12/16 12/19/16 Omeprazole [PriLOSEC] 20 mg PO DAILY 06/12/16 12/19/16 Ranolazine [Ranexa] 500 mg PO BID 06/12/16 12/19/16 Ammonium Lactate [Amlactin] 1 appl TP DAILY PRN 12/19/16 12/19/16 Carboxymethylcellulose Sodium 1 drop OP QID 12/19/16 12/19/16 [Refresh Tears] Cephalexin [Keflex] 500 mg PO Q12H 12/19/16 12/19/16 Ferrous Gluconate 324 mg PO TID 12/19/16 12/19/16 Ibuprofen [Motrin] 400 mg PO Q6HR PRN 12/19/16 12/19/16 Lisinopril [Zestril] 10 mg PO DAILY 12/19/16 12/19/16 glipiZIDE [Glipizide] 20 mg PO QAM 12/19/16 12/19/16 Previous Rx's Medication Instructions Recorded Prasugrel [Effient] 10 mg PO DAILY #30 tablet 02/07/16 Allergies Allergy/AdvReac Type Severity Reaction Status Date / Time No Known Allergies Allergy Verified 03/03/16 12:08 All systems ED: reviewed and negative except as stated. Review of Systems: As Per HPI Constitutional: Denies: fever Eyes: Denies: vision change ENT ED: Denies: congestion Cardiovascular: Reports: chest pain. Denies: palpitations, dyspnea on exertion Respiratory: Denies: cough, dyspnea Gastrointestinal: Denies: abdominal pain Genitourinary: Denies: urgency, dysuria Musculoskeletal: Denies: back pain Integumentary: Denies: rash Neurological: Denies: headache, weakness Psychiatric: Reports: anxiety Endocrine: Reports: fatigue Chest Pain PMH - Past Medical History Medical history: Reports: diabetes, hypertension, myocardial infarction Surgical history: Reports: coronary bypass (CABG) Psychiatric history: Reports: no psych history - Social History Smoking Status: Never smoker Alcohol use: Reports: none Drug use: Reports: none Physical Exam - General Limitations: no limitations General appearance: alert, in no apparent distress - Head Head exam: atraumatic, normocephalic, normal inspection - Eye Eye exam: Present: normal appearance, PERRL, EOMI - ENT ENT exam: normal exam, normal oropharynx, mucous membranes moist - Neck Neck exam: Present: normal inspection, full ROM, trachea midline - Chest Chest inspection: Present: normal inspection, symmetric chest wall rise - Respiratory Respiratory exam: Present: normal lung sounds bilaterally - Cardiovascular Cardiovascular exam: Present: regular rate, normal rhythm, normal heart sounds - Abdominal Exam Abdominal exam: Present: soft, Non-Tender. Absent: tenderness, distention, guarding, rebound, rigidity - Extremities Exam Extremities exam: Present: normal inspection, full ROM, normal capillary refill. Absent: tenderness, pedal edema - Expanded Lower Extremity Exam Hip/Pelvis exam: Present: normal inspection, full ROM - Neurological Exam Neurological exam: Present: alert, oriented X3. Absent: motor sensory deficit - Psychiatric Psychiatric exam: Present: normal affect, normal mood - Skin Skin exam: Present: warm, dry, intact, normal color. Absent: diaphoresis, pallor Course - Reevaluation(s) Reevaluation #1: Patient seen and examined. Cardiac he workup initiated. Time: 11:06 - Consultations Consultation #1: Discussed case with Boiler/Chiller Operator. Patient EKGs down to them. They state no acute changes. Patient does not need to come the Boiler/Chiller Operator Time: 11:25 Vital Signs Temperature 98.8 F 12/19/16 10:51 Pulse Rate 64 12/19/16 10:51 Respiratory Rate 18 12/19/16 10:51 Blood Pressure 137/73 12/19/16 10:51 O2 Sat by Pulse Oximetry 96 12/19/16 10:51 Temperature 98.0 F 12/19/16 18:52 Pulse Rate 69 12/19/16 18:52 Respiratory Rate 12 12/19/16 18:52 Blood Pressure 143/75 12/19/16 18:52 O2 Sat by Pulse Oximetry 96 12/19/16 18:52 Oxygen Delivery Oxygen Delivery Room Air Chest Pain - MDM Narrative Medical decision making narrative: Patient was sent to the ED by Dr. Huerta of cardiology for suspicions of ACS/ [place]. Patient has very suspicious history and has anginal equivalent. Still currently having chest pain as well. Patient's EKGs were sent to catheter lab for evaluation for possible LAD occlusions with questionable Wellens criteria in anteroseptal leads. These findings and outfront seen on the previous EKG. Catheter lab reviewed EKG and states that EKG findings do not warrant Boiler/Chiller Operator evaluation or treatment at this time. Patient's workup was negative for troponin and chest x-ray. Labs are negative for any significant findings. Patient's pain symptoms showed no resolution secondary to nitroglycerin and was started on 4 mg IV morphine. Patient admitted for chest pain workup and trending of troponins. Patient's heart score is 7 and is high risk for adverse cardiac events. Current plan is admission Patient understands and agrees to treatment plan. Patient is accepted for admission by Dr. Kitchen the hospitalist. - Lab Data Lab results reviewed: Yes I reviewed the patient's lab results. Lab results narrative: Short CBC 12/19/16 Range/Units 11:07 WBC 6.1 (4.3-11.1) K/mcL Hgb 13.6 (12.9-16.9) g/dL Hct 39.6 (37.5-50.1) % Plt Count 117 L (140-400) K/mcL Neutrophils # 3.6 (1.6-8.9) K/mcL BMP 12/19/16 Range/Units 11:07 Sodium 136 (136-145) mEq/L Potassium 4.0 (3.5-4.5) mEq/L Chloride 106 (98-109) mEq/L Carbon Dioxide 24 (19-29) mEq/L BUN 19 (8-26) mg/dL Creatinine 0.98 (0.72-1.25) mg/dL Glucose 184 H (70-99) mg/dL Calcium 9.4 (8.6-10.8) mg/dL Cardiac Enzymes 12/19/16 12/19/16 Range/Units 15:46 11:07 Troponin I 0.02 0.01 (0-0.03) ng/mL Result diagrams: 12/19/16 11:07 12/19/16 11:07 Lab Results 12/19/16 12/19/16 12/19/16 Range/Units 11:07 11:07 11:07 WBC 6.1 (4.3-11.1) K/mcL RBC 4.31 (4.19-5.50) M/mcL Hgb 13.6 (12.9-16.9) g/dL Hct 39.6 (37.5-50.1) % MCV 91.9 (83.0-100.0) fL MCH 31.6 (28.0-33.3) pg MCHC 34.3 (31.6-35.5) g/dL RDW 12.9 (11.5-14.5) % Plt Count 117 L (140-400) K/mcL MPV 9.6 (9.4-12.4) fL Immature Gran % 0.3 (0-4) % Seg Neutrophils % 60.2 % Lymphocytes % 24.6 % Monocytes % 9.8 % Eosinophils % 4.1 % Basophils % 1.0 % Neutrophils # 3.6 (1.6-8.9) K/mcL Lymphocytes # 1.5 (0.6-4.6) K/mcL Monocytes # 0.6 (0.0-1.3) K/mcL Eosinophils # 0.3 (0.0-0.6) K/mcL Basophils # 0.1 (0.0-0.2) K/mcL PT 12.1 (9.4-12.1) Seconds INR 1.1 APTT 28.9 (26.0-36.0) Seconds Sodium 136 (136-145) mEq/L Potassium 4.0 (3.5-4.5) mEq/L Chloride 106 (98-109) mEq/L Carbon Dioxide 24 (19-29) mEq/L BUN 19 (8-26) mg/dL Creatinine 0.98 (0.72-1.25) mg/dL Est GFR ( Amer) > 60 (> 60) Est GFR (Non-Af Amer) > 60 (> 60) BUN/Creatinine Ratio 19 (6-26) Glucose 184 H (70-99) mg/dL Calculated Osmolality 289 (280-300) Calcium 9.4 (8.6-10.8) mg/dL Troponin I (0-0.03) ng/mL 12/19/16 Range/Units 11:07 WBC (4.3-11.1) K/mcL RBC (4.19-5.50) M/mcL Hgb (12.9-16.9) g/dL Hct (37.5-50.1) % MCV (83.0-100.0) fL MCH (28.0-33.3) pg MCHC (31.6-35.5) g/dL RDW (11.5-14.5) % Plt Count (140-400) K/mcL MPV (9.4-12.4) fL Immature Gran % (0-4) % Seg Neutrophils % % Lymphocytes % % Monocytes % % Eosinophils % % Basophils % % Neutrophils # (1.6-8.9) K/mcL Lymphocytes # (0.6-4.6) K/mcL Monocytes # (0.0-1.3) K/mcL Eosinophils # (0.0-0.6) K/mcL Basophils # (0.0-0.2) K/mcL PT (9.4-12.1) Seconds INR APTT (26.0-36.0) Seconds Sodium (136-145) mEq/L Potassium (3.5-4.5) mEq/L Chloride (98-109) mEq/L Carbon Dioxide (19-29) mEq/L BUN (8-26) mg/dL Creatinine (0.72-1.25) mg/dL Est GFR ( Amer) (> 60) Est GFR (Non-Af Amer) (> 60) BUN/Creatinine Ratio (6-26) Glucose (70-99) mg/dL Calculated Osmolality (280-300) Calcium (8.6-10.8) mg/dL Troponin I 0.01 (0-0.03) ng/mL - Radiology Data Radiology results reviewed: Yes I reviewed the patient's radiology results. Chest X-Ray 12/19/16 11:06 IMPRESSION: No evidence of acute cardiopulmonary disease. D/ / J Luis Dowell MD / J Luis Dowell MD Interpreting Provider: J Luis Dowell MD - EKG Data EKG attestation: Yes I reviewed and interpreted this EKG. EKG results narrative: EKG taken 12/19/2016 at 1056 hrs. shows sinus rhythm with first-degree heart block at a rate of [address] elevations 23 and aVF no reciprocal findings. V2 V3 suspicious for Wellens, no QRS widening or QT prolongation. There is EKG for comparison also shows a first-degree heart block at a rate of 72 beats a minute and also shows same morphology of ST segment elevation in II, III, and F aVF, anterior septal leads showed no suspicion for Wellens Heart Score - Score History: Highly Suspicious EKG: Non Specific repolarisation Disturbance Age: Greater than 65 Risk Factors: Equal/Greater than 3 risk factor or history of atherosclerotic disease Troponin: Less than normal limit HEART Score Total: 7
--- NOTE | 2016-12-19 11:49 | Emergency Department Note ---
START Narrative - START START: I examined this patient and my medical decision-making was reviewed with the Resident Physician. I agree with the documented findings, disposition and treatment plan as described except to the extent set forth below. 76 yo M here for chest pain. sent from dr santizo's office for chest pain. hx of 10 stents. ekg is changes slightly in the septal leads with some wellens morphology. will need to be admitted for eval for acs and possible cardiac imaging vs cath. vss pt feeling better now
[2016-12-19] MEDS ORDERED: Ondansetron 4 MG/2 ML VIAL IVP ONE (12:09)
[2016-12-19] MEDS ORDERED: 0.9 % Sodium Chloride 1,000 ML IVC ONE (12:09)
[2016-12-19] MEDS ORDERED: *HR* Morphine 2 MG/ML SYRINGE IVP ONE (12:09)
[2016-12-19] MEDS ORDERED: *HR* Morphine 2 MG/ML SYRINGE IVP PRN (12:45)
[2016-12-19] MEDS ORDERED: Ondansetron 4 MG/2 ML VIAL IVP PRN (12:45)
[2016-12-19] MEDS ORDERED: Naloxone 0.4 MG/ML INJ IVP PRN (12:45)
[2016-12-19] MEDS ORDERED: Acetaminophen 325 MG TABLET PO PRN (12:45)
[2016-12-19] MEDS ORDERED: Nitroglycerin 1 INCH/GM PACKET TP PRN (12:59)
--- NOTE | 2016-12-19 13:35 | Internal Med History&Physical ---
<Thomas Mckeon - Last Filed: 12/19/16 15:05> Date of Encounter: 12/19/16 Time of Encounter: 12:00 Assessment and Plan (1) Chest pain Current visit: Yes Status: Acute Assess: Patient reports chest pain for the past 2 weeks and states pain became constant , sharp, and stabbing to the left chest today radiating to his left neck and left arm causing his left arm to become numb. Patient given 2 rounds of chest at [facility] nitro[place]in [place] which he states moderately helped his pain reduced from 64. Initial troponin level 0.01. EKG shows sinus rhythm with first-degree AV block, inferior myocardial infarction of indeterminate age with posterior extension, and moderate T-wave accountability with consideration of anterolateral ischemia. Patient has history of angioplasty with 10 stents and CABG in 2015. Plan: Trend troponins 2 Continuous cardiac telemetry Echocardiogram ordered Cardiology consulted Continue patient's home aspirin therapy, Effient, Crestor, Ranexa, and metoprolol Lipid panel ordered Supplemental O2 with SPO2 monitoring Qualifiers: Chest pain type: precordial pain Qualified Code(s): R07.2 - Precordial pain (2) Dizziness Current visit: Yes Status: Acute Assess: Patient reports episodes of acute dizziness at random at various times. Etiology unknown. Plan: Orthostatic BPs and vital signs ordered Bilateral carotid Dopplers ordered Echocardiogram pending Falls/safety precautions (3) CAD (coronary artery disease) Current visit: Yes Status: Chronic Assess: patient in medical records, history of 10 stents and CABG in 2015. Patient presents with chest pain that he reports has been occurring for 2 weeks but became constant today. Patient given 2 doses of nitroglycerin sublingual and ED which he states moderately helped reducing his pain from 64. Initial troponin 0.01. Plan: Trend troponins 2 echocardiogram ordered Cardiology consulted Continue home aspirin therapy, Effient, Crestor, Ranexa, and metoprolol Supplemental O2 and SPO2 monitoring Lipid panel ordered Qualifiers: Coronary Disease-Associated Artery/Lesion type: [place] artery [place] vs. transplanted heart: [place] heart Associated angina: with stable angina Qualified Code(s): I25.118 - Atherosclerotic heart disease of [place] coronary artery with other forms of angina pectoris (4) GERD (gastroesophageal reflux disease) Current visit: Yes Status: Chronic Assess: And states he is currently experiencing more nausea and abdominal pain related to GERD symptoms. Denies vomiting. Plan: IVP Analia when necessary for nausea IVP Protonix 40 mg twice a day Qualifiers: Esophagitis presence: esophagitis presence not specified Qualified Code(s) : K21.9 - Gastro-esophageal reflux disease without esophagitis (5) HLD (hyperlipidemia) Current visit: Yes Status: Chronic Assess: patient presents with history of chr. Patient states he currently does not know his cholesterol levels. Plan: Lipid panel ordered Continue patient's Crestor Qualifiers: Hyperlipidemia type: pure hypercholesterolemia Qualified Code(s): E78.00 - Pure hypercholesterolemia, unspecified; E78.0 - Pure hypercholesterolemia (6) HTN (hypertension) Current visit: Yes Status: Chronic Assess: Patient presents with history of chronic hypertension. Control is unknown. Patient's BP on admission in ED was 155/79. Plan: Monitor patient vital signs Continue patient's Ranexa and metoprolol Qualifiers: Hypertension type: essential hypertension Qualified Code(s): I10 - Essential (primary) hypertension (7) IDDM (insulin dependent diabetes mellitus) Current visit: Yes Status: Chronic Assess: Patient presents with history of diabetes of unknown control with insulin and oral hyperglycemics. Plan: Hold patient's oral hyperglycemic medications Continue patient's AM and HS insulin Add low-dose correction insulin sliding scale with hypoglycemic protocol Monitor blood glucose ACHS A1c ordered (8) DVT prophylaxis Current visit: Yes Status: Acute Assess: Patient to be placed on DVT prophylaxis due to current admission protocol and bed rest status. Plan: Lovenox 40 mg 0600 ordered Internal Medicine - H&P: HPI Chief complaint: Chest pain Admitted From: Emergency Dept Plans for Post Hospital Care: Home History of present illness: Mr. Taylor is a 76 year old male who presents from the ED with chief complaint of left-sided chest pain for the past 2 weeks that was transient but became constant today. Patient states pain radiated to the left side of his neck as well as down his left arm causing his arm to become. Patient was given nitroglycerin 2 in the ED which he states reduce the pain from a 6-4. Patient has significant coronary artery disease history, reporting he has 10 stents placed with most recently a NATALIA to his LAD in 02/2016 as well as 2 vessel CABG 2 years ago. He is followed by Dr. Huerta currently. Mr. Friedman's medical history includes coronary artery disease, diabetes with insulin dependency, GERD , hyperlipidemia, hypertension, and previous myocardial infarction. Patient is a former smoker stating that he smoked when he was in the [place] but quit many years ago. Patient is currently on aspirin and Effient, as well as Ranexa, metoprolol, and Crestor. Mr. Taylor is at high risk for cardiac event based on his current symptoms, history of previous cardiac events, and risk factors and will replace as observation status. On examination, patient is alert and oriented with only mild distress. Patient denies recent illness, fever, chills , abdominal pain, diarrhea, fever, diaphoresis, palpitations, or syncope. Mr. Cleary does report shortness of breath, nausea, numbness in his left upper extremity, mild discomfort in the left side of his neck, as well as dizziness. Initial troponin on admission to ED is 0.01. EKG today shows sinus rhythm with first-degree AV block, inferior myocardial infarction of indeterminate age with posterior extension, moderate T-wave abnormality. Consider anterolateral ischemia. patient's vital signs on admission were 97.5 temperature, 57 heart rate, 16 respiration rate, 155/79 BP supine, and 98% SPO2. Past Med Surg Social Fam HX - Past Medical History Source: patient Medical history: coronary artery disease, diabetes, GERD, hyperlipidemia, hypertension, myocardial infarction Psychiatric history: no psych history - Past Surgical History Surgical History: angioplasty/stent (Stents x10), coronary bypass (CABG) - Social History Smoking Status: Former smoker Packs per day: 1/2 PPD while in the [place] - Reports quitting many years ago Smokeless Tobacco Status: No Alcohol use: none Drug use: none Occupational status: retired Current living situation: Home, With Family Activity Level: Independent ambulation Recent Out of Country Travel Within the Last 8 Weeks: No Exposure or Possible Exposure to Illness During Travel: No - Family History Father Race: Family Member Ethnicity: Non- Living Status: Age at : 84 Cause of : NV Hx Family Cardiac Disorders: Yes (HD, NV) Brother Race: Family Member Ethnicity: Non- Living Status: Age at : 52 Cause of : Heart failure Hx Family Cardiac Disorders: Yes (HD) Hx Family Endocrine Disorder: Yes (DM) Sister Race: Family Member Ethnicity: Non- Living Status: Age at : 65 Cause of : DM complications Hx Family Cardiac Disorders: Yes Hx Family Endocrine Disorder: Yes (DM) Mother Race: Family Member Ethnicity: Non- Living Status: Age at : 55 Cause of : Blood clot post-surgery Hx Family Endocrine Disorder: Yes (DM) Internal Medicine - H&P: Meds Amlodipine Besylate 10 mg PO DAILY 12/12/15 [History] Docusate [Colace] 200 mg PO BID PRN 12/12/15 [History] Ergocalciferol (VITAMIN D2) [Vitamin D2 (50,000 UNIT)] 50,000 unit PO Q2W [History] Insulin Glargine [Lantus] 88 unit SQ HS 12/12/15 [History] Isosorbide MONOnitrate [Isosorbide Mononitrate ER] 120 mg PO QAM 12/12/15 [ History] Loratadine [Claritin] 10 mg PO HS 12/12/15 [History] Metoprolol [Lopressor] 200 mg PO BID 12/12/15 [History] Nitroglycerin [Nitrostat] 0.4 mg SL Q5M PRN 12/12/15 [History] [place]-3/Dha/Epa/Fish Oil [Fish Oil 1,000 mg Softgel] 2 cap PO BID 12/12/15 [ History] Polyvinyl Alcohol [Artificial Tears] 1 drop BOTH EYES QID 12/12/15 [History] glipiZIDE [Glipizide] 10 mg PO QPM 12/12/15 [History] metFORMIN [Glucophage] 500 mg PO TIDWM 12/12/15 [History] Prasugrel [Effient] 10 mg PO DAILY #30 tablet 02/07/16 [Rx] Aspirin Enteric Coated [Aspirin EC] 81 mg PO DAILY 06/12/16 [History] Omeprazole [PriLOSEC] 20 mg PO DAILY 06/12/16 [History] Ranolazine [Ranexa] 500 mg PO BID 06/12/16 [History] Ammonium Lactate [Amlactin] 1 appl TP DAILY PRN 12/19/16 [History] Carboxymethylcellulose Sodium [Refresh Tears] 1 drop OP QID 12/19/16 [History] Cephalexin [Keflex] 500 mg PO Q12H 12/19/16 [History] Ferrous Gluconate 324 mg PO TID 12/19/16 [History] Ibuprofen [Motrin] 400 mg PO Q6HR PRN 12/19/16 [History] Lisinopril [Zestril] 10 mg PO DAILY 12/19/16 [History] glipiZIDE [Glipizide] 20 mg PO QAM 12/19/16 [History] 3 Allergy/AdvReac Type Severity Reaction Status Date / Time No Known Allergies Allergy Verified 03/03/16 12:08 All Systems PM: A 10-system review of systems was performed and is negative for pertinent findings except as documented above in the HPI. - Constitutional Constitutional: as per HPI, weakness, no chills, no fever(s), no night sweats - EENT Eyes: no change in vision, no discharge, no pain, no photophobia Ears: no ear discharge, no ear pain, no tinnitus Nose, mouth and throat: no dysphagia, no nasal discharge, no neck pain, no sore throat - Breasts Breasts: as per HPI - Cardiovascular Cardiovascular ROS IM: as per HPI, chest pain, dyspnea, dyspnea on exertion, lightheadedness - Respiratory Respiratory: as per HPI, dyspnea, dyspnea on exertion - Gastrointestinal Gastrointestinal: as per HPI, nausea, no abdominal pain, no diarrhea, no hematemesis, no hematochezia, no melena, no vomiting - Genitourinary Genitourinary ROS male: as per HPI - Musculoskeletal Musculoskeletal ROS IM: no numbness, no tingling - Integumentary Integumentary IM: no rash, no unusual bruising - Neurological Neurological ROS: no confusion, no convulsions, no focal weakness, no numbness, no tingling, no tremor(s) - Psychiatric Psychiatric: as per HPI - Endocrine Endocrine IM: as per HPI - Hematologic/Lymphatic Hematologic/Lymphatic: no easy bruising - Allergic/Immunologic Allergic/Immunologic: as per HPI - Constitutional Vitals: Temp Pulse Resp BP Pulse Ox 98.8 F 63 18 151/85 100 12/19/16 10:51 12/19/16 12:32 12/19/16 12:46 12/19/16 12:46 12/19/16 12:32 General appearance: Present: cooperative, mild distress, A&O X 3, pleasant, obese, answers questions appropriately - Head Head exam: Present: atraumatic, normocephalic - Eye Eye exam: Present: PERRL, conjuntiva pink, sclera anicteric Pupils: Present: PERRL - ENT ENT exam: Present: normal exam, normal external ear exam - Neck Neck exam general surgery: Present: normal inspection, supple, trachea midline. Absent: lymphadenopathy - Respiratory Respiratory exam: Present: CTAB. Absent: accessory muscle use, rales, rhonchi, wheezes - Cardiovascular Cardiovascular exam: Present: RRR, +S1, +S2. Absent: diastolic murmur, gallop, rubs, systolic murmur - GI/Abdominal GI/Abdominal exam: Present: normal bowel sounds, soft, no peritoneal signs. Absent: distended, tenderness - Rectal Rectal exam: Present: deferred - Additional comments: exam deferred. - Extremities Exam Extremities exam: Present: warm, radial pulses palpable and symmetrical. Absent : calf tenderness, cyanotic, pedal edema - Back Exam Back exam: Present: normal inspection - Neurological Exam Neurological exam: Present: CN II-XII intact, oriented X3, no focal deficits. Absent: pronater drift, facial droop, speech deficit - Psychiatric Psychiatric exam: Present: normal affect, normal mood - Skin Skin exam: Present: dry, intact Internal Med - H&P Results - Labs CBC & Chem 7: 12/19/16 11:07 12/19/16 11:07 - EKG Data EKG shows normal: sinus rhythm - EKG Data Prior EKG available for review: yes When compared to previous EKG: there is no significant change Interpretation IM: suggestive of ischemia EKG comments: 12/19/16 13:43 EKG dated 06/13/16 shows sinus rhythm with first-degree AV block, possible lateral myocardial infarction of indeterminate age, inferior myocardial infarction of indeterminate age. EKG dated 12/19/16 shows sinus rhythm with first-degree AV block, inferior myocardial infarction of indeterminate age with posterior extension, moderate T- wave abnormality. Consider anterolateral ischemia. - Diagnostic Studies Chest x-ray Additional comments: Impressions Chest X-Ray 12/19/16 11:06 IMPRESSION: No evidence of acute cardiopulmonary disease. D/ / J Luis Dowell MD / J Luis Dowell MD Interpreting Provider: J Luis Dowell MD <Percy Kitchen - Last Filed: 12/19/16 20:12> Date of Encounter: 12/19/16 Internal Medicine - H&P: HPI History of present illness: Mr. Taylor is a 76 year old male All Systems PM: A 10-system review of systems was performed and is negative for pertinent findings except as documented above in the HPI. - Constitutional Vitals: Temp Pulse Resp BP Pulse Ox 98.0 F 69 12 143/75 96 12/19/16 18:52 12/19/16 18:52 12/19/16 18:52 12/19/16 18:52 12/19/16 18:52 Internal Med - H&P Results - Labs CBC & Chem 7: 12/19/16 11:07 12/19/16 11:07 Labs: Cardiac Enzymes 12/19/16 Range/Units 15:46 Troponin I 0.02 (0-0.03) ng/mL - Attending Attestation I have personally seen and examined the patient and care plan discussed with advanced as practitioner. Patient came in with chest pain. He has history of previous CABG and stents and multiple NV. At this point he is chest pain-free. Chest examination showed clear chest rate rhythm regular no gallop rhythm. Cardiology to see the patient to device for the planned while we will be ruling him out for NV.
[2016-12-19] MEDS: *HR* HYDROcodone/Acet 5/325 mg TABLET PO PRN ×2 (14:06→19:36)
[2016-12-19] MEDS: Pantoprazole 40 MG VIAL IVP SCH ×2 (14:07→21:36)
[2016-12-19] MEDS ORDERED: NON-FORMULARY MEDICATION 1 EACH EACH (Carboxymethylcellulose Sodium [Refresh Tears] 1 DROP OP SCH (17:00)
[2016-12-19] MEDS: Artificial Tears SOLN 15 ML BOTTLE BOTH EYES SCH ×2 (17:42→21:37)
[2016-12-19] MEDS ORDERED: Insulin DETEMIR 100 UNIT/ML X5UNITS SQ SCH (21:00)
[2016-12-19] MEDS ORDERED: INSULIN GLARGINE SQ SCH (21:00)
[2016-12-19] MEDS ORDERED: Loratadine 10 MG TABLET PO SCH (21:00)
[2016-12-19] MEDS: Ranolazine 500 MG TAB.ER.12H PO SCH (21:36)
[2016-12-19] MEDS: Metoprolol 100 MG TABLET PO SCH (21:36)
[2016-12-20 04:45] LABS: Basophils % 0.6 %; Eosinophils # 0.2 K/mcL (0.0-0.6); Eosinophils % 3.9 %; Hematocrit 39.5 % (37.5-50.1); Hemoglobin 13.7 g/dL (12.9-16.9); Immature Granulocytes % 0.2 % (0-4); Lymphocytes # 1.4 K/mcL (0.6-4.6); Lymphocytes % 26.8 %; Mean Corpuscular HGB Conc 34.7 g/dL (31.6-35.5); Mean Corpuscular Hemoglobin 32.2 pg (28.0-33.3); Mean Corpuscular Volume 92.7 fL (83.0-100.0); Mean Platelet Volume 9.9 fL (9.4-12.4); Monocytes # 0.4 K/mcL (0.0-1.3); Monocytes % 8.2 %; Neutrophils # 3.1 K/mcL (1.6-8.9); Platelet Count 100 K/mcL (140-400); Red Blood Count 4.26 M/mcL (4.19-5.50); Red Cell Distribution Width 13.3 % (11.5-14.5); Segmented Neutrophils % 60.3 %
[2016-12-20 04:51] LABS: Hemoglobin A1C 6.1 %
[2016-12-20 04:54] LABS: INR 1.2; Prothrombin Time 12.7 Seconds (9.4-12.1)
[2016-12-20 04:57] LABS: Activated Partial Thrombo Time 29.3 Seconds (26.0-36.0)
[2016-12-20 05:02] LABS: BUN/Creatinine Ratio 14 (6-26); Blood Urea Nitrogen 15 mg/dL (8-26); Calcium 8.7 mg/dL (8.6-10.8); Carbon Dioxide 24 mEq/L (19-29); Chloride 108 mEq/L (98-109); Chol/HDL Ratio 4.6 (0-4.9); Cholesterol 114 mg/dL (< 200); Glucose 304 mg/dL (70-99); HDL Cholesterol 25 mg/dL (40-59); LDL Cholesterol,Calculated 38 mg/dL (0-99); Osmolality,Calculated 302 (280-300); Potassium 4.4 mEq/L (3.5-4.5); Sodium 140 mEq/L (136-145); Triglycerides 254 mg/dL (< 150); eGFR For African Americans > 60 (> 60); eGFR For Non-African Americans > 60 (> 60)
[2016-12-20] MEDS ORDERED: *HR* Enoxaparin 40 MG/0.4 ML SYRINGE SQ SCH (06:00)
[2016-12-20] MEDS ORDERED: amLODIPine 5 MG TABLET PO SCH (09:00)
[2016-12-20] MEDS ORDERED: Isosorbide MONOnitrate (24 HR) 60 MG TAB.ER.24H PO SCH (09:00)
[2016-12-20] MEDS ORDERED: Aspirin Enteric Coated 81 MG Tablet PO SCH (09:00)
[2016-12-20] MEDS: Pantoprazole 40 MG VIAL IVP SCH (09:42)
[2016-12-20] MEDS: Artificial Tears SOLN 15 ML BOTTLE BOTH EYES SCH ×2 (09:42→13:46)
[2016-12-20] MEDS: Ranolazine 500 MG TAB.ER.12H PO SCH (09:43)
[2016-12-20] MEDS: Metoprolol 100 MG TABLET PO SCH (09:43)
[2016-12-20] MEDS: *HR* HYDROcodone/Acet 5/325 mg TABLET PO PRN (09:47)
--- NOTE | 2016-12-20 10:03 | Cardiology Consult Note ---
Date of Encounter: 12/20/16 Time of Encounter: 10:00 Assessment and Plan (1) Chest pain Current Visit: Yes Status: Acute Per Cardiology: Symptoms somewhat atypical and continuous occurring at rest. Troponins negative 3. ECG overall comparable to baseline. CP slightly worsened with position changes. Current echo shows EF 45%, previously 40% in January 2016. [facility] films reviewed and discussed with Dr. Guerrero. Recommend medical management optimization. Ranexa increased to 1000 mg by mouth twice a day and long-acting nitrates increased to Imdur 180mg PO daily. Patient and agreeable for medical management and follow-up as outpatient. Cartilage was signed off, reconsult as needed, follow-up scheduled, all questions answered. Qualifiers: Chest pain type: precordial pain Qualified Code(s): R07.2 - Precordial pain (2) CAD (coronary artery disease) Current Visit: Yes Status: Chronic Per Cardiology: Patient has significant coronary artery disease history, reporting he has 10 stents placed with most recently a NATALIA 01/2016 as well as 2 vessel CABG 2 years ago. Patient underwent left heart catheterization November 2015 which showed left main 70%, diagonal 184%, proximal circumflex 50%, OM1 90%-- bypassed, left PDA 90%, proximal RCA 100%, patent PEREZ to mid LAD and patent SVG to OM1. Patient underwent catheterization January 2016 for recurrent chest pain and underwent drug-eluting stent to ostial left main 70% lesion, report also showed mid LAD 80 %-- bypassed by PEREZ, OM2 70%--small in size. Qualifiers: Coronary Disease-Associated Artery/Lesion type: [place] artery [place] vs. transplanted heart: [place] heart Associated angina: with stable angina Qualified Code(s): I25.118 - Atherosclerotic heart disease of [place] coronary artery with other forms of angina pectoris (3) HTN (hypertension) Current Visit: Yes Status: Chronic Per Cardiology: Currently not well controlled systolically in the 160s. Will increase lisinopril to 20 mg by mouth daily. Monitor symptoms with blood pressure control. Qualifiers: Hypertension type: essential hypertension Qualified Code(s): I10 - Essential (primary) hypertension Discussion w patient/family: The assessment and plan as outlined above was discussed with the patient and/or family members who expressed understanding and agreement. All questions were answered. Thank you for involving us in the care of your patient. Please call with any questions. History of Present Illness Consult date: 12/20/16 Consult reason: CP Chief complaint: CP History of present illness: Mr. Taylor is a 76 year old male with a relevant past medical history of CAD, hypertension, hyperlipidemia, diabetes, GERD, and past history of nicotine abuse. Cardiology consult for chest pain symptoms. Patient reports increased midsternal chest pressure over the past one week that is continuous. Reports currently 4 out of 10. Complaint of Left arm numbness. He reports prior to this incident intermittent chest pain at rest and with exertion that occurs on a daily occurrence with utilization of NTG pills daily- - slight increase in frequency lately (has had for years). He reports fatigue and REIS very mildly worsened. Reports episode of diarrhea one time last week. Had 1 epsiode N&V a few days ago. Denies any fever, chills, cough. Denies any active bleeding or blood loss. Reports compliance of medications. Reports occasional dizziness, denies any syncope or falls. Reports resolution of history of palpitations. Past Med Surg Social Fam HX - Past Medical History Attestation: Yes The following information was validated with the patient. Source: patient, old records reviewed, obtained from family Medical history: cardiomyopathy, coronary artery disease, diabetes, hypertension , myocardial infarction Psychiatric history: no psych history - Past Surgical History Surgical History: coronary bypass (CABG) - Social History Smoking Status: Former smoker Packs per day: 1/2 PPD while in the [place] - Reports quitting many years ago Smokeless Tobacco Status: No Alcohol use: none Drug use: none - Family History Father Race: Family Member Ethnicity: Non- Living Status: Age at : 84 Cause of : [place] Hx Family Cardiac Disorders: Yes ([place], [place]) Brother Race: Family Member Ethnicity: Non- Living Status: Age at : 52 Cause of : Heart failure Hx Family Cardiac Disorders: Yes (HD) Hx Family Endocrine Disorder: Yes (DM) Sister Race: Family Member Ethnicity: Non- Living Status: Age at : 65 Cause of : DM complications Hx Family Cardiac Disorders: Yes Hx Family Endocrine Disorder: Yes (DM) Mother Race: Family Member Ethnicity: Non- Living Status: Age at : 55 Cause of : Blood clot post-surgery Hx Family Endocrine Disorder: Yes (DM) Medications and Allergies Amlodipine Besylate 10 mg PO DAILY 12/12/15 [History] Docusate [Colace] 200 mg PO BID PRN 12/12/15 [History] Ergocalciferol (VITAMIN D2) [Vitamin D2 (50,000 UNIT)] 50,000 unit PO Q2W [History] Insulin Glargine [Lantus] 88 unit SQ HS 12/12/15 [History] Isosorbide MONOnitrate [Isosorbide Mononitrate ER] 120 mg PO QAM 12/12/15 [ History] Loratadine [Claritin] 10 mg PO HS 12/12/15 [History] Metoprolol [Lopressor] 200 mg PO BID 12/12/15 [History] Nitroglycerin [Nitrostat] 0.4 mg SL Q5M PRN 12/12/15 [History] Theresa-3/Dha/Epa/Fish Oil [Fish Oil 1,000 mg Softgel] 2 cap PO BID 12/12/15 [ History] Polyvinyl Alcohol [Artificial Tears] 1 drop BOTH EYES QID 12/12/15 [History] glipiZIDE [Glipizide] 10 mg PO QPM 12/12/15 [History] metFORMIN [Glucophage] 500 mg PO TIDWM 12/12/15 [History] Prasugrel [Effient] 10 mg PO DAILY #30 tablet 02/07/16 [Rx] Aspirin Enteric Coated [Aspirin EC] 81 mg PO DAILY 06/12/16 [History] Omeprazole [PriLOSEC] 20 mg PO DAILY 06/12/16 [History] Ranolazine [Ranexa] 500 mg PO BID 06/12/16 [History] Ammonium Lactate [Amlactin] 1 appl TP DAILY PRN 12/19/16 [History] Carboxymethylcellulose Sodium [Refresh Tears] 1 drop OP QID 12/19/16 [History] Cephalexin [Keflex] 500 mg PO Q12H 12/19/16 [History] Ferrous Gluconate 324 mg PO TID 12/19/16 [History] Ibuprofen [Motrin] 400 mg PO Q6HR PRN 12/19/16 [History] Lisinopril [Zestril] 10 mg PO DAILY 12/19/16 [History] glipiZIDE [Glipizide] 20 mg PO QAM 12/19/16 [History] 3 Allergy/AdvReac Type Severity Reaction Status Date / Time No Known Allergies Allergy Verified 03/03/16 12:08 All Systems Review: A 10-system review of systems was performed and is negative for pertinent findings except as documented above in the HPI. - Constitutional Constitutional: fatigue - Cardiovascular Cardiovascular: as per HPI, chest pain at rest, chest pain with exertion, dyspnea at rest, dyspnea on exertion, radiating jaw, neck or arm pain, palpitations - Gastrointestinal Gastrointestinal: nausea Physical Examination Vital Signs, Last 4 Hours Temp Pulse Resp BP BP BP BP 12/20/16 07:18 97.6 F 62 14 162/79 162/79 157/80 178/77 Pulse Ox 12/20/16 07:18 98 Selected Entries 12/20/16 07:18 Blood Pressure [Orthostatic Lying Left Arm] 162/79 Blood Pressure [Orthostatic Sitting Left Arm] 157/80 Blood Pressure [Orthostatic Standing Left Arm] 178/77 General: Conversant, No Apparent Distress HEENT: Atraumatic, Normocephaly, Mucus Membranes Moist Neck: No JVD, Normal carotid pulses Cardiac: Reg Rate and Rhythm, Normal S1 and S2, No Murmur Lungs: Normal Breath Sounds, No Wheeze, Rales, Rhonchi Neuro: Alert and responsive, No focal deficits noted Abdomen: Soft, Non-Tender Skin: No rashes noted on visualized skin Musculoskeletal: No Chest Wall Tenderness Extremities: No Clubbing, No Cyanosis, No Edema, Normal Pulses Results 12/20/16 04:27 12/20/16 04:27 Lab Results Laboratory Tests 06/13/16 12/19/16 12/19/16 03:20 11:07 11:07 Plt Count 163 117 L INR Magnesium Troponin I 0.01 LDL Cholesterol, Calc 12/19/16 12/19/16 12/20/16 15:46 22:11 04:27 Plt Count 100 L INR Magnesium Troponin I 0.02 0.01 LDL Cholesterol, Calc 12/20/16 12/20/16 04:27 04:27 Plt Count INR 1.2 Magnesium 2.0 Troponin I LDL Cholesterol, Calc 38 ITS Impressions Chest X-Ray 12/19/16 11:06 IMPRESSION: No evidence of acute cardiopulmonary disease. D/ / J Luis Dowell MD / J Luis Dowell MD Interpreting Provider: J Luis Dowell MD Active Medications Acetaminophen (Tylenol) 650 mg PO Q6HR PRN PRN Reason: Mild Pain (1-3) Stop: 06/20/17 12:46 Last Admin: 12/19/16 21:36 Dose: 650 mg Hydrocodone Bitart/Acetaminophen ([place] 5-325 Mg) 1 tab PO Q4HR PRN PRN Reason: Moderate Pain (4-6) Stop: 06/20/17 12:46 Last Admin: 12/20/16 09:47 Dose: 1 tab Amlodipine Besylate (Norvasc) 10 mg PO DAILY [facility] Stop: 06/21/17 09:01 Last Admin: 12/20/16 09:43 Dose: 10 mg Artificial Tears ([place] Tears) 1 drop BOTH EYES QID LONG PRN Reason: Protocol Stop: 06/20/17 17:01 Last Admin: 12/20/16 09:42 Dose: 1 drop Aspirin (Aspirin Ec) 81 mg PO DAILY [facility] Stop: 06/21/17 09:01 Last Admin: 12/20/16 09:42 Dose: 81 mg Docusate Sodium (Colace) 200 mg PO BID PRN; Protocol PRN Reason: Constipation Stop: 06/20/17 13:05 Enoxaparin Sodium (Lovenox) 40 mg SQ 0600 LONG PRN Reason: Protocol Stop: 06/21/17 06:01 Last Admin: 12/20/16 06:00 Dose: 40 mg Ergocalciferol (Drisdol (50,000 Unit)) 50,000 unit PO Q2W [facility] Stop: 06/20/17 13:16 Last Admin: 12/19/16 14:07 Dose: 50,000 unit Ferrous Sulfate (Ferrous Sulfate) 325 mg PO TIDWM [facility] Stop: 06/20/17 17:01 Last Admin: 12/20/16 09:42 Dose: 325 mg Insulin Detemir (Levemir) 88 unit SQ HS LONG Stop: 06/20/17 21:01 Last Admin: 12/19/16 21:37 Dose: 88 unit Isosorbide Mononitrate (Imdur) 120 mg PO QAM [facility] Stop: 06/21/17 09:01 Last Admin: 12/20/16 09:42 Dose: 120 mg Lisinopril (Zestril) 10 mg PO DAILY [facility] PRN Reason: Protocol Stop: 06/21/17 09:01 Last Admin: 12/20/16 09:43 Dose: 10 mg Loratadine (Claritin) 10 mg PO HS LONG PRN Reason: Protocol Stop: 06/20/17 21:01 Last Admin: 12/19/16 21:36 Dose: 10 mg Metoprolol Tartrate (Lopressor) 200 mg PO BID [facility] Stop: 06/20/17 21:01 Last Admin: 12/20/16 09:43 Dose: 200 mg Morphine Sulfate (Morphine Sulfate) 2 mg IVP Q4HR PRN PRN Reason: Severe Pain (7-10) Stop: 06/20/17 12:46 Naloxone HCl (Narcan) 0.4 mg IVP Q2MIN PRN PRN Reason: Opioid Reversal Stop: 06/20/17 12:46 Nitroglycerin (Nitroglycerin) 1 inch TP Q6HNTG PRN PRN Reason: Chest Pain Stop: 06/20/17 17:01 Last Admin: 12/19/16 16:00 Dose: 1 inch Ondansetron HCl (Zofran) 4 mg IVP Q8HR PRN PRN Reason: Nausea And Vomiting Stop: 06/20/17 12:46 Pantoprazole Sodium (Protonix) 40 mg IVP BID [facility] Stop: 06/20/17 12:46 Last Admin: 12/20/16 09:42 Dose: 40 mg Prasugrel (Effient) 10 mg PO DAILY [facility] Stop: 06/21/17 09:01 Last Admin: 12/20/16 09:42 Dose: 10 mg Ranolazine (Ranexa) 500 mg PO BID [facility] Stop: 06/20/17 21:01 Last Admin: 12/20/16 09:43 Dose: 500 mg - Imaging and Cardiology Chest Xray: report reviewed Echo: report reviewed Cardiac cath: report reviewed - EKG Interpretation EKG results cardiology: personally reviewed (comparable to baseline, has flipped t waves in v leads) Consult Discharge Plan - Plan [facility]errals: [facility] [Primary Care Provider[facility] -
[2016-12-20] MEDS ORDERED: Isosorbide MONOnitrate (24 HR) 60 MG TAB.ER.24H PO ONE (10:45)
[2016-12-20] MEDS ORDERED: Ranolazine 500 MG TAB.ER.12H PO ONE (10:45)
--- NOTE | 2016-12-20 11:54 | Carotid Imaging Report ---
Carotid Duplex Patient Name:Frandy Taylor Order Number:[id number] Procedure Date:12/19/2016 Date:1940ge:76 yrs Gender:Male Lt BP:143 / 75 mmHg Rt.BP:155 / 79 mmHgHeart Rate: Location:[facility] Room #: 3B33 Infection Prevention Practitioner:Le Bennett Referring MD:Thomas Mckeon CNP distance education coordinator:[facility] Radha MD:Albert Jackson MD Primary Indications:Dizziness/ pre-syncope Risk Factors Yes/No Hypertension Yes Hypercholesterolemia Yes Diabetes Yes Smoker Previous Yes Hx of CAD/PTCA Yes Impressions: The right carotid artery has minimal plaque throughout. The left internal carotid artery has a 40-59% stenosis. Recommendations: Risk factor reduction. Follow-up carotid duplex in 1 year. After imaging the patient returned to their room. Findings Carotid Duplex: Right: The right proximal common carotid artery has a PSV of 91 cm/s and a EDV of 17 cm/s. There is nonstenotic plaque in the right mid common carotid artery with a PSV of 92 cm/s and a EDV of 21 cm/s. There is nonstenotic plaque in the right distal common carotid artery with a PSV of 90 cm/s and a EDV of 17 cm/s. There is nonstenotic plaque in the right bifurcation with a PSV of 79 cm/s and a EDV of 20 cm/s. The right proximal internal carotid artery has a PSV of 76 cm/s and a EDV of 21 cm/s. The right mid internal carotid artery has a PSV of 82 cm/s and a EDV of 21 cm/s. The right distal internal carotid artery has a PSV of 71 cm/s and a EDV of 22 cm/s. The right eca has a PSV of 109 cm/s. The right vertebral artery has a PSV of 30 cm/s and a EDV of 7 cm/s. Left: The left proximal common carotid artery has a PSV of 79 cm/s and a EDV of 13 cm/s. The left mid common carotid artery has a PSV of 74 cm/s and a EDV of 12 cm/s. The left distal common carotid artery has a PSV of 95 cm/s and a EDV of 12 cm/s. There is nonstenotic plaque in the left bifurcation with a PSV of 96 cm/s and a EDV of 16 cm/s. The left proximal internal carotid artery has a PSV of 85 cm/s and a EDV of 23 cm/s. There is 40-59% stenosis in the left mid internal carotid artery with a PSV of 138 cm/s and a EDV of 37 cm/s. The left distal internal carotid artery has a PSV of 103 cm/s and a EDV of 31 cm/s. The left eca has a PSV of 103 cm/s and a EDV of 6 cm/s. The left vertebral artery has a PSV of 26 cm/s and a EDV of 8 cm/s. Prior Study: No prior study available for comparison. Carotid Results Right PSV EDV Assessment Proximal CCA 91 17 Non Stenotic Plaque Mid CCA 92 21 Non Stenotic Plaque Distal CCA 90 17 Non Stenotic Plaque Bifurcation 79 20 Non Stenotic Plaque Proximal ICA 76 21 Normal Mid ICA 82 21 Normal Distal ICA 71 22 Normal ECA 109 0 Normal Vertebral Artery 30 7 Normal Left PSV EDV Assessment Proximal CCA 79 13 Normal Mid CCA 74 12 Normal Distal CCA 95 12 Normal Bifurcation 96 16 Non Stenotic Plaque Proximal ICA 85 23 Normal Mid ICA 138 37 40-59% stenosis Distal ICA 103 31 Normal ECA 103 6 Normal Vertebral Artery 26 8 Normal Ratio's Right ICA/CCA Ratio: 0.89 ICA/CCA Values: 82/92 Left ICA/CCA Ratio: 1.86 ICA/CCA Values: 138/74 Updated by Albert Jackson MD on 12/20/2016 11:36:58 AM electronically signed on 12/20/2016 11:47:56 AM with status of Final
[2016-12-20] MEDS ORDERED: Insulin LISPRO 300 UNITS/3 ML VIAL SQ SCH ×2 (12:15→21:00)
[2016-12-20 15:23] VITALS: BP 108/61
--- NOTE | 2016-12-20 15:25 | Discharge Summary ---
Date of Encounter: 12/20/16 Time of Encounter: 08:40 - Discharge Diagnosis (1) Chest pain Priority: Primary Status: Acute Comments: Patient reports 2 week history of chest pain began at rest. Subsequently chest pain with exertion yesterday. The pain was intermittent. The change that spurred the presentation in the emergency room was that it radiated up his neck down his arm and it was worse than recent. He has had no chest pain since yesterday. He is a patient of Dr. Huerta. He says he has been up in his room and has been walking around and has not had any chest pain at all. Troponins were negative 3. Patient's A1c is 6.1. EKG was normal sinus rhythm with first-degree AV block. Patient has a lengthy cardiac history with CABG in 2014 10 stents. Carotid Doppler showed right with minimal plaque, left with 40-59% stenosis. Echo with LVEF of 45%, previously 40% in January 2016, with segmental systolic dysfunction, mild LVEDD, atypical septal motion consistent with prior surgery, no significant valvular dysfunction. Patient was seen by cardiology and they recommended continued medical management. The Ranexa was increased 1000 mg twice daily and Imdur 100 mg daily. Patient will follow up in the clinic. Qualifiers: Chest pain type: precordial pain Qualified Code(s): R07.2 - Precordial pain (2) IDDM (insulin dependent diabetes mellitus) Priority: Secondary Status: Chronic Comments: A1c is 6.1. Continue with home medication regimen. (3) HTN (hypertension) Priority: Secondary Status: Chronic Comments: Chronic. Well controlled. Continue home medications. Qualifiers: Hypertension type: essential hypertension Qualified Code(s): I10 - Essential (primary) hypertension (4) HLD (hyperlipidemia) Priority: Secondary Status: Chronic Comments: Chronic. continue home medications. Qualifiers: Hyperlipidemia type: pure hypercholesterolemia Qualified Code(s): E78.00 - Pure hypercholesterolemia, unspecified; E78.0 - Pure hypercholesterolemia (5) GERD (gastroesophageal reflux disease) Priority: Secondary Status: Chronic Comments: Continue home medications. Qualifiers: Esophagitis presence: esophagitis presence not specified Qualified Code(s) : K21.9 - Gastro-esophageal reflux disease without esophagitis (6) CAD (coronary artery disease) Priority: Secondary Status: Chronic Comments: Patient denies chest pain currently. Continue aspirin, beta barron. Ranexa has been increased, as well as Imdur. Follow up with cardiology and the office. Qualifiers: Coronary Disease-Associated Artery/Lesion type: [place] artery [place] vs. transplanted heart: [place] heart Associated angina: with stable angina Qualified Code(s): I25.118 - Atherosclerotic heart disease of [place] coronary artery with other forms of angina pectoris (7) Dizziness Priority: Secondary Status: Acute Comments: Patient reports intermittent dizziness at length about various times. Etiology unknown. Results of testing as above. Patient denies currently or since visit. Follow-up with primary care. (8) DVT prophylaxis Priority: Secondary Status: Acute Comments: Lovenox subcutaneous. - Discharge Medications Prescriptions: Isosorbide MONOnitrate (24 HR) [Imdur] 180 mg PO QAM #90 tab Ranolazine [Ranexa] 1,000 mg PO BID #60 tab.er.12h Home Medications: Amlodipine Besylate 10 mg PO DAILY 12/12/15 [History] Docusate [Colace] 200 mg PO BID PRN 12/12/15 [History] Ergocalciferol (VITAMIN D2) [Vitamin D2 (50,000 UNIT)] 50,000 unit PO Q2W [History] Insulin Glargine [Lantus] 88 unit SQ HS 12/12/15 [History] Loratadine [Claritin] 10 mg PO HS 12/12/15 [History] Metoprolol [Lopressor] 200 mg PO BID 12/12/15 [History] Nitroglycerin [Nitrostat] 0.4 mg SL Q5M PRN 12/12/15 [History] [place]-3/Dha/Epa/Fish Oil [Fish Oil 1,000 mg Softgel] 2 cap PO BID 12/12/15 [ History] Polyvinyl Alcohol [Artificial Tears] 1 drop BOTH EYES QID 12/12/15 [History] glipiZIDE [Glipizide] 10 mg PO QPM 12/12/15 [History] metFORMIN [Glucophage] 500 mg PO TIDWM 12/12/15 [History] Prasugrel [Effient] 10 mg PO DAILY #30 tablet 02/07/16 [Rx] Aspirin Enteric Coated [Aspirin EC] 81 mg PO DAILY 06/12/16 [History] Omeprazole [PriLOSEC] 20 mg PO DAILY 06/12/16 [History] Ammonium Lactate [Amlactin] 1 appl TP DAILY PRN 12/19/16 [History] Carboxymethylcellulose Sodium [Refresh Tears] 1 drop OP QID 12/19/16 [History] Cephalexin [Keflex] 500 mg PO Q12H 12/19/16 [History] Ferrous Gluconate 324 mg PO TID 12/19/16 [History] Ibuprofen [Motrin] 400 mg PO Q6HR PRN 12/19/16 [History] Lisinopril [Zestril] 10 mg PO DAILY 12/19/16 [History] glipiZIDE [Glipizide] 20 mg PO QAM 12/19/16 [History] Isosorbide MONOnitrate (24 HR) [Imdur] 180 mg PO QAM #90 tab 12/20/16 [Rx] Ranolazine [Ranexa] 1,000 mg PO BID #60 tab.er.12h 12/20/16 [Rx] Allergies/Adverse Reactions: 3 Allergy/AdvReac Type Severity Reaction Status Date / Time No Known Allergies Allergy Verified 03/03/16 12:08 Procedures/tests Complete & Pending: Procedures Performed prior 72 hours Category Date Time Status EV carotid duplex imaging BI Routine Y 12/19/16 12:55 Completed EV echocardiogram Routine Y 12/19/16 12:54 Completed Date of admission: 12/19/16 12:18 [facility] care physician: [facility] Consults: 12/19/16 12:54 Consult to Occupational Therapy [CONS] Routine Comment: Evaluate, develop and implement POC Reason for Consult: Patient becomes dizzy with positional changes and at random moments. Assess for stability/ambulation/assistive device needs post- discharge . Consult to Physical Therapy [CONS] Routine Comment: Evaluate, develop and implement POC Reason for Consult: Patient becomes dizzy with positional changes and at random moments. Assess for stability/ambulation/assistive device needs post- discharge . 12/19/16 14:43 Consult to Cardiology [CONS] Routine Comment: Consulting Provider: [facility] Reason for Consult: Patient presents with left-sided chest pain for past two weeks that became severe today with radiation to left neck and arm with numbness to left arm. Hx of angioplasty/stents x10 and CABG in 2014. SL nitro in ED x2 reduced CP from 6 to 4. Call Completed: Yes Discharging clinician: Rizwana Gross Anticipated date of discharge: 12/20/16 - Patient Status Disposition: Home, Self-Care Condition: Good Functional capacity at discharge: independent ambulation Overall status at discharge: patient is back to baseline - Discharge Instructions Follow Up With: [facility] [Primary Care Provider] - Additional Instructions: Follow up with your PCP in the next 7-10 days for a follow up visit. Follow up with cardiology as scheduled. Take your medications as directed and start your new medications tomorrow. Return to the ER as needed for any new or worsening symptoms or if your pain returns. Resume your normal activities as tolerated. - Diet and Activity Activity: increase activity as tolerated Diet: diabetic diet Hospital course: Mr. Taylor is a 76 year old male with a lengthy history of coronary artery disease with multiple MIs, CABG, 10 stent, hyperlipidemia, hypertension, diabetes, GERD. Presents to the emergency department with chief complaint of left-sided chest pain the last 2 weeks was intermittent but became constant today with radiation of pain left neck and down left arm. Patient was given nitroglycerin 2 in the emergency department which states helped reduce the pain from a 6-4. Patient has a lengthy history with 10 stents, most recently NATALIA to his LAD in February,, as well as a 2 vessel CABG 2 years ago. He is followed by Dr. Huerta. He denied recent illness, fever, chills, abdominal pain, diarrhea, fever, diaphoresis, palpitations, or syncope. He did report shortness of breath, nausea, numbness in the left upper extremity which is resolved. Mild discomfort left of his neck as well as dizziness, both of which have also resolved as well. Patient carotid Dopplers that showed right with minimal plaque throughout, left has 40-59% stenosis. Troponins were negative 3. Echocardiogram showed LVEF of 45% with segmental LV systolic dysfunction, mild LVEDD, atypical septal motion consistent with surgery, no significant valvular dysfunction. Chest x- ray was negative. Patient was evaluated by cardiology who recommends further medical management. They have increased his Ranexa to 1000 mg twice a day and Imdur 180 mg daily. Troponins were within normal limits. Patient's A1c is 6.1. Lipid panel is within normal limits, triglycerides of 254. Patient will continue the rest of his medications at home as normal. He denies any pain, dizziness, nausea at this time. He states he is ready to go home and will follow-up with cardiology outpatient. Patient is ready for discharge. - Time Spent with Patient Total time spent providing and/or coordinating discharge services: Less than 30 minutes - Constitutional Vitals: Temp Pulse Resp BP Pulse Ox 98.0 F 60 14 160/89 96 12/20/16 11:21 12/20/16 11:21 12/20/16 11:21 12/20/16 11:21 12/20/16 11:21 General appearance: Present: cooperative, A&O X 3, pleasant, no acute distress, obese, answers questions appropriately - Head Head exam: Present: atraumatic, normal inspection, normocephalic - Eye Eye exam: Present: normal appearance, conjuntiva pink, sclera anicteric - ENT ENT exam: Present: mucous membranes moist, normal exam - Neck Neck exam general surgery: Present: normal inspection, supple, trachea midline. Absent: lymphadenopathy, tenderness - Respiratory Respiratory exam: Present: CTAB. Absent: accessory muscle use, decreased breath sounds, rales, rhonchi, wheezes - Cardiovascular Cardiovascular exam: Present: RRR, +S1, +S2. Absent: diastolic murmur, gallop, rubs, systolic murmur - GI/Abdominal GI/Abdominal exam: Present: normal bowel sounds, soft. Absent: distended, hepatomegaly, tenderness - Extremities Exam Extremities exam: Present: normal inspection, warm, radial pulses palpable and symmetrical. Absent: calf tenderness, cyanotic, pedal edema - Neurological Exam Neurological exam: Present: alert, oriented X3, no focal deficits. Absent: facial droop, speech deficit - Skin Skin exam: Present: dry, intact, normal color, warm. Absent: rash
[2016-12-20] MEDS ORDERED: Ranolazine 500 MG TAB.ER.12H PO SCH (21:00)
[2016-12-21] MEDS ORDERED: Isosorbide MONOnitrate (24 HR) 60 MG TAB.ER.24H PO SCH (09:00)
--- NOTE | 2016-12-24 07:54 | Electrocardiograph Report ---
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
== END 2016-12-20 16:25 | disposition home or self-care (01) ==
LOC: EMEROO 10:50 → 3BNU 10:50
PROVIDERS: ADMIT Internal Medicine; ATTEND Registered Nurse

== ENCOUNTER 2018-11-13 12:27 | Observation (INO) ==
--- NOTE | 2018-11-13 13:42 | Emergency Department Note ---
Disposition Clinical Impression: Chest pain Qualifiers: Chest pain type: unspecified Qualified Code(s): R07.9 - Chest pain, unspecified Diabetes Qualifiers: Diabetes mellitus type: other specified (including EFRAIN) Diabetes mellitus residential insulin use: with residential use Diabetes mellitus complication status: with other specified complication Qualified Code(s): E13.69 - Other specified diabetes mellitus with other specified complication; Z79.4 - jail (current) use of insulin Pharyngitis Qualifiers: Pharyngitis/tonsillitis etiology: unspecified etiology Qualified Code(s): J02.9 - Acute pharyngitis, unspecified Disposition: Admitted As Inpatient Condition: Fair [facility]errals: [facility],PCP [Primary Care Provider] - Forms: ED Satisfaction Letter Time of Disposition: 16:41 General Adult HPI - General Chief complaint: ED Upper Respiratory Infection Stated complaint: Sore throat Time Seen by Provider: 11/13/18 12:50 Source: patient Limitations: no limitations Nursing Notes Reviewed: Yes Vital Signs Reviewed: Yes - History of Present Illness HPI Narrative: Presents with chest tightness which started 2 days ago gradually and is constant and is exertional with some associated dyspnea which she states is new for him. No diaphoresis. No pleuritic aspect. No radiation to the back. No pain or swelling of the lower extremities. Also has a sore throat the last 4 days and this is increased with swallowing with some postnasal drip but no coughing. No fevers. No exposure to ill persons. The third complaint is a headache which started gradually 4 days ago and constant and frontal and a pressure sensation and he denies any numbness or weakness of the extremities, slurred speech, facial droop, confusion, fever, rash, vomiting. Social history: Stopped smoking 15 years ago, no alcohol or drugs. The patient does have a history of coronary disease Pain Scale: 6 - Related Data Home Medications Medication Instructions Recorded Confirmed Amlodipine Besylate 10 mg PO DAILY 12/12/15 10/16/17 Insulin Glargine [Lantus] 88 unit SQ HS 12/12/15 10/16/17 Loratadine [Claritin] 10 mg PO HS 12/12/15 10/16/17 Metoprolol [Lopressor] 200 mg PO BID 12/12/15 10/16/17 [place]-3/Dha/Epa/Fish Oil [Fish Oil 2 cap PO BID 12/12/15 10/16/17 1,000 mg Softgel] Ferrous Gluconate 324 mg PO TID 12/19/16 10/16/17 Ibuprofen [Motrin] 400 mg PO Q6HR PRN 12/19/16 10/16/17 Lisinopril [Zestril] 10 mg PO DAILY 12/19/16 10/16/17 Aspirin [Ecotrin] 325 mg PO DAILY 04/03/17 10/16/17 Cyclobenzaprine [Flexeril] 10 mg PO TID PRN 04/03/17 10/16/17 Isosorbide MONOnitrate (24 HR) 120 mg PO QAM 04/03/17 10/16/17 [Imdur] Metformin HCl [Metformin HCl ER] 500 mg PO TID 04/03/17 10/16/17 Ranolazine [Ranexa] 500 mg PO BID 04/03/17 10/16/17 Ropinirole HCl [Requip] 0.5 mg PO DAILY 04/03/17 10/16/17 Rosuvastatin [Crestor] 40 mg PO HS 04/03/17 10/16/17 Tamsulosin [Flomax] 0.4 mg PO DAILY 04/03/17 10/16/17 Cholecalciferol (Vitamin D3) 50,000 unit PO Q2W 10/16/17 10/16/17 [Vitamin D] Previous Rx's Medication Instructions Recorded Prasugrel [Effient] 10 mg PO DAILY #30 tablet 02/07/16 HYDROcodone/Acet 5/325 mg [[place] 1 tab PO Q4H PRN 7 Days #42 tab 10/16/17 5-325 mg] Allergies Allergy/AdvReac Type Severity Reaction Status Date / Time No Known Allergies Allergy Verified 10/16/17 10:23 All systems ED: reviewed and negative except as stated. Past Medical History - Past Medical History Medical history: Reports: cardiomyopathy, coronary artery disease, diabetes, hypertension, myocardial infarction Surgical history: Reports: coronary bypass (CABG) Psychiatric history: Reports: no psych history - Social History Smoking Status: Former smoker Smokeless Tobacco Status: No Alcohol use: Reports: none Drug use: Reports: none Physical Exam CONSTITUTIONAL: Well-appearing; well-nourished; A&O X 3, in no apparent distress HEAD: Normocephalic; atraumatic EYES: PERRL, no scleral icterus NOSE: The nose is normal in appearance without rhinorrhea NECK: No JVD or distended neck veins RESP: Normal chest excursion with respiration; breath sounds clear and equal bilaterally; no wheezes, rhonchi, or rales CARD: Regular rhythm, without murmurs, rub or gallop ABD: Non-distended; non-tender, soft, without rigidity, rebound or guarding,no pulsatile mass CHEST: No pain with palpation SKIN: Normal for age and race; warm and dry without diaphoresis ; no apparent lesions EXTREMITIES: Pulses are 2 plus and equal times 4 extremities, no peripheral edema or calf muscle pain NEUROLOGICAL: Patient is alert and oriented times three. Cranial nerves III- XII are intact. Sensory and motor functions are intact. Strength is 5/5 for flexion and extension in all 4 extremities. Finger to nose testing is equal and normal bilaterally. ORAL: Well hydrated, moist mucous membranes. No drooling, trismus or stridor noted THROAT: Normal appearance without exudates, erythema or edema. The uvula is midline and his only the very most minimal of edema . Airway widely patent. No evidence of abscess NECK: No anterior cervical adenopathy, trachea is midline - General Limitations: no limitations General appearance: alert, in no apparent distress Course Vital Signs Temperature 99.1 F 11/13/18 12:37 Pulse Rate 108 11/13/18 12:37 Respiratory Rate 18 11/13/18 12:37 Blood Pressure 146/73 11/13/18 12:37 O2 Sat by Pulse Oximetry 97 11/13/18 12:37 Temperature 99.1 F 11/13/18 13:05 Pulse Rate 77 11/13/18 15:10 Respiratory Rate 22 11/13/18 15:10 Blood Pressure 135/71 11/13/18 15:10 O2 Sat by Pulse Oximetry 97 11/13/18 15:10 Oxygen Delivery Oxygen Delivery Room Air Medical Decision Making - [facility] Narrative Medical decision making narrative: The patient has 3 main problems and regarding the chest tightness this is concerning especially with the new associated dyspnea the patient will have an EKG, labs including troponin and chest x-ray. Regarding the headache this started gradually and is constant with a negative neuro exam and without specific focal neurologic symptoms I feel the risk of subarachnoid hemorrhage, brain tumor, CVA is very unlikely. The throat exam does show some very minimal uvular edema and the patient will have a swab for strep however this is unlikely in his age group. There is no evidence of any drooling or stridor or difficulty controlling airway whatsoever. This is likely viral in etiology. 1342 I did review the patient's test results. The patient does have an abnormal EKG but these findings have been present in the past including inferior ST elevation and T-wave inversion in aVL. Current EKG normal sinus rhythm with rate of 75 without evidence of arrhythmia. Previous EKG was 12/19/2016. Patient's lipase and chest tightness radiating to the shoulders with his dyspnea and exertional component of the chest pain he will be admitted for further cardiac evaluation. His skin drier is Dr. Huerta. 1623 I did speak with Dr. Patton who accepts the patient for admission. I did see the patient again just a few minutes ago. Concern for patient with coronary disease with chest tightness radiating to shoulders which is exertional with associated dyspnea and concern for acute coronary syndrome. Initial tests are negative. EKG is abnormal but these are chronic changes. 1641 - Medical Records Medical records reviewed: Yes I reviewed the patient's medical records. - Lab Data Lab results reviewed: Yes I reviewed the patient's lab results. Result diagrams: 11/13/18 13:43 11/13/18 13:43 Lab Results 11/13/18 11/13/18 Range/Units 13:43 13:43 WBC 10.7 (4.3-11.1) K/mcL RBC 4.75 (4.19-5.50) M/mcL Hgb 14.7 (12.9-16.9) g/dL Hct 43.8 (37.5-50.1) % MCV 92.2 (83.0-100.0) fL MCH 30.9 (28.0-33.3) pg MCHC 33.6 (31.6-35.5) g/dL RDW 12.4 (11.5-14.5) % Plt Count 165 (140-400) K/mcL MPV 10.0 (9.4-12.4) fL Immature Gran % 0.5 (0-4) % Seg Neutrophils % 74.4 % Lymphocytes % 14.6 % Monocytes % 9.1 % Eosinophils % 1.0 % Basophils % 0.4 % Neutrophils # 8.0 (1.6-8.9) K/mcL Lymphocytes # 1.6 (0.6-4.6) K/mcL Monocytes # 1.0 (0.0-1.3) K/mcL Eosinophils # 0.1 (0.0-0.6) K/mcL Basophils # 0.0 (0.0-0.2) K/mcL Sodium 137 (136-145) mEq/L Potassium 4.1 (3.5-5.1) mEq/L Chloride 106 (98-107) mEq/L Carbon Dioxide 25 (23-29) mEq/L BUN 27 H (8-23) mg/dL Creatinine 1.00 (0.70-1.30) mg/dL Est GFR ( Amer) > 60 (> 60) Est GFR (Non-Af Amer) > 60 (> 60) BUN/Creatinine Ratio 27 H (6-26) Glucose 76 (70-105) mg/dL Calculated Osmolality 288 (280-300) Calcium 9.3 (8.6-10.3) mg/dL Troponin I < 0.03 (< 0.04) ng/mL - Radiology Data Radiology results reviewed: Yes I reviewed the patient's radiology results.
[2018-11-13] MEDS ORDERED: Ethanol\\Acetic Acid\\Na Ace\\Ben 1,000 ML IRRIG.SOLN IR ONE (13:49)
[2018-11-13 13:57] LABS: Basophils % 0.4 %; Eosinophils # 0.1 K/mcL (0.0-0.6); Hematocrit 43.8 % (37.5-50.1); Hemoglobin 14.7 g/dL (12.9-16.9); Immature Granulocytes % 0.5 % (0-4); Lymphocytes # 1.6 K/mcL (0.6-4.6); Lymphocytes % 14.6 %; Mean Corpuscular HGB Conc 33.6 g/dL (31.6-35.5); Mean Corpuscular Hemoglobin 30.9 pg (28.0-33.3); Mean Corpuscular Volume 92.2 fL (83.0-100.0); Monocytes % 9.1 %; Platelet Count 165 K/mcL (140-400); Red Blood Count 4.75 M/mcL (4.19-5.50); Red Cell Distribution Width 12.4 % (11.5-14.5); Segmented Neutrophils % 74.4 %; White Blood Count 10.7 K/mcL (4.3-11.1)
[2018-11-13 14:20] LABS: BUN/Creatinine Ratio 27 (6-26); Blood Urea Nitrogen 27 mg/dL (8-23); Calcium 9.3 mg/dL (8.6-10.3); Carbon Dioxide 25 mEq/L (23-29); Chloride 106 mEq/L (98-107); Glucose 76 mg/dL (70-105); Osmolality,Calculated 288 (280-300); Potassium 4.1 mEq/L (3.5-5.1); Sodium 137 mEq/L (136-145); Troponin I < 0.03 ng/mL (< 0.04); eGFR For African Americans > 60 (> 60); eGFR For Non-African Americans > 60 (> 60)
[2018-11-13] MEDS ORDERED: Acetaminophen 325 MG TABLET PO PRN (17:42)
[2018-11-13] MEDS ORDERED: Naloxone 0.4 MG/ML INJ IVP PRN (17:42)
--- NOTE | 2018-11-13 18:25 | Internal Med History&Physical ---
Date of Encounter: 11/13/18 Time of Encounter: 18:00 Internal Medicine - H&P: HPI Chief complaint: chest tightness, REIS, sore throat, JONES Admitted From: Emergency Dept History of present illness: Mr. Taylor is a 78 year old male with history CAD with prior PCI and CABG, HFrEF 45%, T2DM, HTN who presented to the ED with complaint of chest tightness, REIS, sore throat, and headache for the past few days and is being admitted for ACS r/o given significant PMH. Patient states that this chest tightness feels different than previous cardiac CP. The pain in non-reproducible and worse with exertion. He has also noticed REIS when walking even short distances over the last few days. He denies any radiation of pain, weakness, numbness, or tingling associated with his symptoms. He admits to a runny nose, congestion, and a sore throat for the past few days. He has experienced intermittent "hot flashes" and has not checked his temperature. He denies chills, cough, N/V/D, or recent sick contacts. On admission, patient had a T99.1, HR 108, RR18, BP 146/73, and was 97% on RA EKG was NSR with rate 75 and was noted to be similar to previous EKG findings given significant cardiac hx CXR showed no acute abnormalities Troponin negative x1 Past Med Surg Social Fam HX - Past Medical History Medical history: cardiomyopathy, coronary artery disease, diabetes, hypertension, myocardial infarction Additional medical history: CAD,NSTEMI,ischemic cardiomyopathy, pripheral vascular disease,seasonal allergies Psychiatric history: no psych history - Past Surgical History Surgical History: coronary bypass (CABG) Additional surgical history: RIGHT GREAT TOE AND 2ND TOE AMPUTATION. cardiac stents x10. right arm bone graft. left sided groin hernia repair. incisional and drainage right foot,bone graft left arm,inguinal hernia repair,right shoulder,eyelid surgery,[facility] - Social History Smoking Status: Former smoker Smokeless Tobacco Status: No Alcohol use: none Drug use: none - Family History Father Family Member Ethnicity: Non- Living Status: Hx Family Cardiac Disorders: Yes ([place], [place]) Brother Family Member Ethnicity: Non- Living Status: Hx Family Cardiac Disorders: Yes ([place]) Hx Family Endocrine Disorder: Yes ([place]) Sister Family Member Ethnicity: Non- Living Status: Hx Family Cardiac Disorders: Yes Hx Family Endocrine Disorder: Yes (DM) Mother Family Member Ethnicity: Non- Living Status: Hx Family Endocrine Disorder: Yes (DM) Internal Medicine - H&P: Meds Ammonium Lactate [Lac-Hydrin Five] 1 gm TP BID 11/13/18 [History] Aspirin Enteric Coated [Aspirin EC] 325 mg PO DAILY 11/13/18 [History] Cholecalciferol (Vitamin D3) [Dialyvite Vitamin D3 Max] 50,000 unit PO Q14D 11/13/18 [History] Cyclobenzaprine [Flexeril] 10 mg PO TID PRN 11/13/18 [History] Docusate Sodium [Stool Softener] 200 mg PO DAILY 11/13/18 [History] Ferrous Gluconate 324 mg PO TID 11/13/18 [History] GlipiZIDE [Glucotrol] 10 mg PO DAILY@1700 11/13/18 [History] GlipiZIDE [Glucotrol] 20 mg PO QAM 11/13/18 [History] Ibuprofen [Ibu] 400 mg PO Q6H PRN 11/13/18 [History] Insulin Glargine [Lantus] 92 unit SQ HS 11/13/18 [History] Isosorbide MONOnitrate (24 HR) [Imdur] 120 mg PO DAILY 11/13/18 [History] Loratadine [Allergy Relief] 10 mg PO DAILY PRN 11/13/18 [History] Metformin HCl [Metformin ER Osmotic] 1,000 mg PO BID 11/13/18 [History] Metoprolol [Lopressor] 200 mg PO BID 11/13/18 [History] [place]-3/Dha/Epa/Fish Oil [Fish Oil 1,000 mg Softgel] 2 each PO BID 11/13/18 [ History] Omeprazole [PriLOSEC] 20 mg PO DAILY 11/13/18 [History] Polyvinyl Alcohol [Artificial Tears] 1 drop OP QID 11/13/18 [History] Prasugrel [Effient] 10 mg PO DAILY 11/13/18 [History] Ranolazine [Ranexa] 500 mg PO BID 11/13/18 [History] Rosuvastatin [Crestor] 40 mg PO HS 11/13/18 [History] Tamsulosin HCl [Flomax] 0.4 mg PO HS 11/13/18 [History] amLODIPine [Norvasc] 5 mg PO DAILY 11/13/18 [History] Allergy/AdvReac Type Severity Reaction Status Date / Time No Known Allergies Allergy Verified 10/16/17 10:23 All Systems PM: A 10-system review of systems was performed and is negative for pertinent findings except as documented above in the HPI. - Constitutional Constitutional: other (hot flashes), no chills, no weakness - EENT Eyes: blurry vision (with JONES) Ears: ear pain Nose, mouth and throat: nasal congestion, nasal discharge, sore throat - Cardiovascular Cardiovascular ROS IM: dyspnea on exertion, no edema, no irregular heart rhythm, no palpitations, no syncope - Respiratory Respiratory: no cough, no hemoptysis, no chest congestion, no excessive phlegm production - Gastrointestinal Gastrointestinal: no abdominal pain, no diarrhea, no nausea, no vomiting - Genitourinary Genitourinary ROS male: no difficulty urinating, no dysuria - Integumentary Integumentary IM: no rash, no unusual bruising - Neurological Neurological ROS: headache(s), no abnormal gait, no abnormal speech, no confusion, no focal weakness, no frequent falls, no numbness, no tingling - Psychiatric Psychiatric: no anxiety, no behavioral changes - Hematologic/Lymphatic Hematologic/Lymphatic: easy bleeding, easy bruising, lymphadenopathy - Allergic/Immunologic Allergic/Immunologic: seasonal rhinorrhea, no itchy eyes - Constitutional Vitals: Temp Pulse Resp BP Pulse Ox 98.2 F 77 17 144/74 95 11/13/18 17:30 11/13/18 17:30 11/13/18 17:30 11/13/18 17:30 11/13/18 17:30 Exam: Gen: Vitals noted. No acute distress. Eyes: anicteric sclerae, moist conjunctivae Head: Normocephalic, atraumatic ENT: Oral mucosa moist. No oropharyngeal erythema or exudates noted. Mild uvular edema. Neck: Trachea midline; supple, cervical and submandibular lymphadenopathy and tenderness to palpation Cardiac: RRR, no murmur, +S1/S2 Pulmonary: CTA bilaterally, no wheezes, rales or rhonchi, equal chest expansion Abdomen: soft, nontender, no guarding. No masses or hepatosplenomegaly MSK: ROM intact, no joint swelling noted Extremities: Amputation of great toe and 2nd to on right foot noted. No BLE edema, nontender calf, no cyanosis or clubbing Skin: Warm, dry, intact; no rash, ulcers or subcutaneous nodules Neuro: moves all extremities, no focal deficits. Psych: Appropriate mood and behavior. A&Ox3 Internal Med - H&P Results - Labs CBC & Chem 7: 11/13/18 13:43 11/13/18 13:43 Labs: Short CBC 11/13/18 Range/Units 13:43 WBC 10.7 (4.3-11.1) K/mcL Hgb 14.7 (12.9-16.9) g/dL Hct 43.8 (37.5-50.1) % Plt Count 165 (140-400) K/mcL Neutrophils # 8.0 (1.6-8.9) K/mcL BMP 11/13/18 13:43 Sodium 137 Potassium 4.1 Chloride 106 Carbon Dioxide 25 BUN 27 H Creatinine 1.00 Glucose 76 Calcium 9.3 Cardiac Enzymes 11/13/18 Range/Units 13:43 Troponin I < 0.03 (< 0.04) ng/mL - Impressions ITS Impressions Chest X-Ray 11/13/18 13:31 IMPRESSION: No evidence for acute cardiopulmonary process. D/ / 11/13/2018 13:46:04 Seth Bills MD / [facility] Interpreting Provider: Seth Bills MD - Assessment and Plan (1) REIS (dyspnea on exertion) Current Visit: Yes Status: Acute Assessment and plan: Possibly associated with viral URI, however significant cardiac hx therefore must consider ACS Troponin negative x 1, repeat pending Cardiology consulted Echo pending (2) Viral URI Current Visit: Yes Status: Acute Assessment and plan: Suspect rhinorrhea, JONES, sore throat, lymphadenopathy related to viral infection Antibiotics not indicated at this time Started lozenges for sore throat Started Tylenol for JONES Will continue to monitor (3) CAD (coronary artery disease) Current Visit: Yes Status: Chronic Assessment and plan: continue home meds Qualifiers: Coronary Disease-Associated Artery/Lesion type: [place] artery [place] vs. transplanted heart: [place] heart Associated angina: with stable angina Qualified Code(s): I25.118 - Atherosclerotic heart disease of [place] coronary artery with other forms of angina pectoris (4) HTN (hypertension) Current Visit: Yes Status: Chronic Assessment and plan: stable, continue home meds Qualifiers: Hypertension type: essential hypertension Qualified Code(s): I10 - Essential (primary) hypertension (5) HLD (hyperlipidemia) Current Visit: Yes Status: Chronic Assessment and plan: continue home meds Qualifiers: Hyperlipidemia type: pure hypercholesterolemia Qualified Code(s): E78.00 - Pure hypercholesterolemia, unspecified; E78.0 - Pure hypercholesterolemia (6) GERD (gastroesophageal reflux disease) Current Visit: Yes Status: Chronic Assessment and plan: continue home meds Qualifiers: Esophagitis presence: esophagitis presence not specified Qualified Code(s): K21.9 - Gastro-esophageal reflux disease without esophagitis - Time Spent With Patient Total time spent is greater than 50% in coordination of care (as documented) at patient's floor/unit and/or counseling patient:
[2018-11-13] MEDS ORDERED: Loratadine 10 MG TABLET PO PRN (20:29)
[2018-11-13] MEDS ORDERED: Dextrose Gel 15 GM/37.5 ML TUBE PO PRN ×2 (20:34)
[2018-11-13] MEDS ORDERED: D5% in Water 1,000 ML IVC PRN (20:34)
[2018-11-13] MEDS ORDERED: *HR* Dextrose 50 % in Water (Syg) 50 ML SYRINGE IVP PRN (20:34)
[2018-11-13] MEDS ORDERED: Insulin LISPRO 300 UNITS/3 ML VIAL SQ SCH (21:00)
[2018-11-13] MEDS: Metoprolol 100 MG TABLET PO SCH (21:34)
[2018-11-13] MEDS: Ranolazine 500 MG TAB.ER.12H PO SCH (21:34)
[2018-11-13] MEDS: Cholecalciferol (D-3) 1,000 UNIT (25MCG) TABLET PO SCH (21:37)
[2018-11-13] MEDS: Insulin DETEMIR 100 UNIT/ML X5UNITS SQ SCH (21:37)
[2018-11-13] MEDS: Insulin LISPRO 300 UNITS/3 ML VIAL SQ SCH (21:38)
[2018-11-13] MEDS: (Fish Oil 1,000 Mg Softgel) PO SCH (21:47)
[2018-11-13] MEDS: Ammonium Lactate 30 APPL/225 GM BOTTLE TP SCH (21:47)
[2018-11-14] MEDS: Insulin LISPRO 300 UNITS/3 ML VIAL SQ SCH ×2 (07:38→11:45)
[2018-11-14] MEDS ORDERED: Perflutren Lipid Microsphere 1.3 ML in 0.9 % Sodium Chloride 8.7 ML IVP ONE (07:38)
[2018-11-14 07:46] LABS: BUN/Creatinine Ratio 27 (6-26); Blood Urea Nitrogen 24 mg/dL (8-23); Calcium 8.7 mg/dL (8.6-10.3); Carbon Dioxide 24 mEq/L (23-29); Chloride 105 mEq/L (98-107); Glucose 131 mg/dL (70-105); Magnesium 2.1 mg/dL (1.6-2.6); Osmolality,Calculated 290 (280-300); Potassium 3.7 mEq/L (3.5-5.1); Sodium 137 mEq/L (136-145); Troponin I < 0.03 ng/mL (< 0.04); eGFR For African Americans > 60 (> 60); eGFR For Non-African Americans > 60 (> 60)
[2018-11-14] MEDS: Ranolazine 500 MG TAB.ER.12H PO SCH (07:57)
[2018-11-14] MEDS: Cholecalciferol (D-3) 1,000 UNIT (25MCG) TABLET PO SCH (07:57)
[2018-11-14] MEDS: (Fish Oil 1,000 Mg Softgel) PO SCH (07:58)
[2018-11-14] MEDS: Insulin DETEMIR 100 UNIT/ML X5UNITS SQ SCH (07:58)
[2018-11-14] MEDS: Metoprolol 100 MG TABLET PO SCH (07:58)
[2018-11-14] MEDS ORDERED: Aspirin Enteric Coated 325 MG Tablet PO SCH (09:00)
[2018-11-14] MEDS ORDERED: amLODIPine 5 MG TABLET PO SCH (09:00)
[2018-11-14] MEDS ORDERED: Isosorbide MONOnitrate (24 HR) 60 MG TAB.ER.24H PO SCH (09:00)
[2018-11-14] MEDS: Ammonium Lactate 30 APPL/225 GM BOTTLE TP SCH (10:12)
--- NOTE | 2018-11-14 10:31 | Cardiology Consult Note ---
Date of Encounter: 11/14/18 Time of Encounter: 10:00 Assessment and Plan (1) Viral URI Current Visit: Yes Status: Acute Per cardiology: -Patient presents with URI symptoms. -Management per primary service. (2) Atypical chest pain Current Visit: No Status: Acute Per cardiology: -Patient reports atypical, pleuritic chest pain in the setting of URI. -States different from previous angina. -ECG with SR, Non-specific ST and T wave abnormalities noted. -Troponins negative x3. -TTE pending -Anticipate sign off if no acute changes noted on TTE and evaluation by . (3) CAD (coronary artery disease) Current Visit: Yes Status: Chronic Per cardiology: -Known CAD s/p CABG and PCI. -[facility] 12/13/2015: Left main ostial 70% stenosis. LAD mid to distal diffusely diseased. D1 85% stenosis. Circumflex proximal 50% stenosis. OM1 90% stenosis (bypassed). L PDA 90% stenosis (minimal collaterals, left and left). RCA proximal 100% stenosis. SVG to OM1 patent, but does not backfill distal ci rcumflex/L PDA. PEREZ to mid LAD patent. -[facility] 02/06/16: (staged). Successful PTCA/NATALIA (x1) to LM. -On asa, effient, statin, BB, imdur, ranexa. -Denies angina. -Continue current medical therapy. Qualifiers: Coronary Disease-Associated Artery/Lesion type: [place] artery [place] vs. transplanted heart: [place] heart Associated angina: without angina Qualified Code(s): I25.10 - Atherosclerotic heart disease of [place] coronary artery without angina pectoris (4) Ischemic cardiomyopathy Current Visit: Yes Status: Acute Per cardiology: -Known ICM. -[facility] 12/19/2016: LVEF 45%. The basal to mid inferior and inferolateral segments were hypokinetic. Mild diastolic dysfunction. Atypical septal motion. Normal RV size and function. No evidence of pulmonary hypertension. No significant valvul ar dysfunction. -On BB. Per last cardiology OP notes, had been on lisa inhibitor. -Euvolemic on exam. -Current TTE pending. -Will resume lisa inhibitor. Discussion w patient/family: The assessment and plan as outlined above was discussed with the patient who expressed understanding and agreement. All questions were answered. Thank you for involving us in the care of your patient. Please call with any questions. Discussed and reviewed with . History of Present Illness Consult date: 11/13/18 Requesting physician: Shannon Durán Consult reason: chest pain Chief complaint: sore throat History of present illness: Mr. Taylor is a 78 year old male with a relevant past medical history of CAD s/p CABG and PCI, ICM, [place], DM, HTN, CVA, PVD, carotid stenosis, HTN, who presented to [facility] with complaints of sore throat. Patient reports he has felt congestion, had nasal drainage, and sore throat for a few days. Also reports some chest discomfort with cough and deep breathing. Patient states this chest discomfort is different from his previous angina. Denies current chest pain. Reports some mild shortness of breath since upper respiratory symptoms have started. Denies increased fatigue. Past Med Surg Social Fam HX - Past Medical History Attestation: Yes The following information was validated with the patient. Source: patient, old records reviewed Medical history: cardiomyopathy, coronary artery disease, diabetes, hypertension, myocardial infarction Additional medical history: CAD,NSTEMI,ischemic cardiomyopathy, pripheral vascular disease,seasonal allergies Psychiatric history: no psych history - Past Surgical History Surgical History: coronary bypass (CABG) Additional surgical history: RIGHT GREAT TOE AND 2ND TOE AMPUTATION. cardiac stents x10. right arm bone graft. left sided groin hernia repair. incisional and drainage right foot,bone graft left arm,inguinal hernia repair,right shoulder,eyelid surgery,[facility] - Social History Smoking Status: Former smoker Smokeless Tobacco Status: No Alcohol use: none Drug use: none - Family History Father Family Member Ethnicity: Non- Living Status: Hx Family Cardiac Disorders: Yes ([place], [place]) Brother Family Member Ethnicity: Non- Living Status: Hx Family Cardiac Disorders: Yes (HD) Hx Family Endocrine Disorder: Yes (DM) Sister Family Member Ethnicity: Non- Living Status: Hx Family Cardiac Disorders: Yes Hx Family Endocrine Disorder: Yes (DM) Mother Family Member Ethnicity: Non- Living Status: Hx Family Endocrine Disorder: Yes (DM) Medications and Allergies Ammonium Lactate [Lac-Hydrin Five] 1 gm TP BID 11/13/18 [History] Aspirin Enteric Coated [Aspirin EC] 325 mg PO DAILY 11/13/18 [History] Cholecalciferol (Vitamin D3) [Dialyvite Vitamin D3 Max] 50,000 unit PO Q14D 11/13/18 [History] Cyclobenzaprine [Flexeril] 10 mg PO TID PRN 11/13/18 [History] Docusate Sodium [Stool Softener] 200 mg PO DAILY 11/13/18 [History] Ferrous Gluconate 324 mg PO TID 11/13/18 [History] GlipiZIDE [Glucotrol] 10 mg PO DAILY@1700 11/13/18 [History] GlipiZIDE [Glucotrol] 20 mg PO QAM 11/13/18 [History] Ibuprofen [Ibu] 400 mg PO Q6H PRN 11/13/18 [History] Insulin Glargine [Lantus] 92 unit SQ HS 11/13/18 [History] Isosorbide MONOnitrate (24 HR) [Imdur] 120 mg PO DAILY 11/13/18 [History] Loratadine [Allergy Relief] 10 mg PO DAILY PRN 11/13/18 [History] Metformin HCl [Metformin ER Osmotic] 1,000 mg PO BID 11/13/18 [History] Metoprolol [Lopressor] 200 mg PO BID 11/13/18 [History] [place]-3/Dha/Epa/Fish Oil [Fish Oil 1,000 mg Softgel] 2 each PO BID 11/13/18 [History] Omeprazole [PriLOSEC] 20 mg PO DAILY 11/13/18 [History] Polyvinyl Alcohol [Artificial Tears] 1 drop OP QID 11/13/18 [History] Prasugrel [Effient] 10 mg PO DAILY 11/13/18 [History] Ranolazine [Ranexa] 500 mg PO BID 11/13/18 [History] Rosuvastatin [Crestor] 40 mg PO HS 11/13/18 [History] Tamsulosin HCl [Flomax] 0.4 mg PO HS 11/13/18 [History] amLODIPine [Norvasc] 5 mg PO DAILY 11/13/18 [History] Allergy/AdvReac Type Severity Reaction Status Date / Time No Known Allergies Allergy Verified 10/16/17 10:23 All Systems Review: The remainder of the systems were reviewed and are negative - Cardiovascular Cardiovascular: as per HPI, chest pain at rest, dyspnea on exertion - Respiratory Respiratory: cough Physical Examination Vital Signs, Last 4 Hours Temp Pulse Resp BP Pulse Ox 11/14/18 08:16 97 11/14/18 07:27 98.9 F 72 20 144/58 97 General: Conversant, No Apparent Distress HEENT: Atraumatic, Normocephaly, Mucus Membranes Moist Neck: No JVD, Normal carotid pulses Cardiac: Reg Rate and Rhythm, Normal S1 and S2, No Murmur Lungs: Normal Breath Sounds, No Wheeze, Rales, Rhonchi Neuro: Alert and responsive, No focal deficits noted Abdomen: Soft, Non-Tender Skin: No rashes noted on visualized skin Musculoskeletal: No Chest Wall Tenderness Extremities: No Clubbing, No Cyanosis, No Edema, Normal Pulses Results 11/13/18 13:43 11/14/18 06:53 Lab Results Impressions Chest X-Ray 11/13/18 13:31 IMPRESSION: No evidence for acute cardiopulmonary process. D/ / 11/13/2018 13:46:04 Seth Bills MD / [facility] Interpreting Provider: Seth Bills MD Active Medications Acetaminophen (Tylenol) 650 mg PO Q6HR PRN PRN Reason: Mild Pain/Fever Stop: 05/15/19 17:43 Last Admin: 11/13/18 18:32 Dose: 650 mg Documented by: Amlodipine Besylate (Norvasc) 5 mg PO DAILY [facility]; Protocol Stop: 05/16/19 09:01 Last Admin: 11/14/18 07:57 Dose: 5 mg Documented by: Aspirin (Aspirin Ec) 325 mg PO DAILY [facility] Stop: 05/16/19 09:01 Last Admin: 11/14/18 07:57 Dose: 325 mg Documented by: Cyclobenzaprine HCl (Flexeril) 10 mg PO TID PRN PRN Reason: Muscle Spasm Stop: 05/15/19 20:30 Dextrose/Water (Dextrose 50% (Syg)) 25 ml IVP AD PRN PRN Reason: Hypoglycemia Stop: 05/15/19 20:35 Docusate Sodium (Colace) 200 mg PO DAILY [facility]; Protocol Stop: 05/16/19 09:01 Last Admin: 11/14/18 07:57 Dose: 200 mg Documented by: Ferrous Sulfate (Ferrous Sulfate) 325 mg PO BID [facility] Stop: 05/16/19 09:01 Last Admin: 11/14/18 07:57 Dose: 325 mg Documented by: Glucagon (Glucagen) 1 mg IM ONCE PRN PRN Reason: Hypoglycemia Stop: 05/15/19 20:35 Glucose (Gluctose) 15 gm PO ONCE PRN PRN Reason: Hypoglycemia Stop: 05/15/19 20:35 Glucose (Gluctose) 30 gm PO ONCE PRN PRN Reason: Hypoglycemia Stop: 05/15/19 20:35 Dextrose (Dextrose 5%) 1,000 mls @ 100 mls/hr IVC .Q10H PRN PRN Reason: HYPOGLYCEMIA Stop: 05/15/19 20:35 Insulin Detemir (Levemir) 50 unit SQ BID [facility] Stop: 05/15/19 21:01 Last Admin: 11/14/18 07:58 Dose: 50 unit Documented by: Insulin Human Lispro (Humalog) 0 units SQ TIDAC [facility]; Protocol Stop: 05/15/19 20:46 Last Admin: 11/14/18 07:38 Dose: Not Given Documented by: Insulin Human Lispro (Humalog) 0 units SQ HS [facility]; Protocol Stop: 05/15/19 21:01 Last Admin: 11/13/18 21:37 Dose: 4 unit Documented by: Isosorbide Mononitrate (Imdur) 120 mg PO DAILY [facility] Stop: 05/16/19 09:01 Last Admin: 11/14/18 07:57 Dose: 120 mg Documented by: Lactic Acid (Amlactin) 1 appl TP BID [facility] Stop: 05/15/19 21:01 Last Admin: 11/14/18 10:12 Dose: Not Given Documented by: Loratadine (Claritin) 10 mg PO DAILY PRN; Protocol PRN Reason: ALLERGIES Stop: 05/15/19 20:30 Metoprolol Tartrate (Lopressor) 200 mg PO BID [facility] Stop: 05/15/19 21:01 Last Admin: 11/14/18 07:58 Dose: 200 mg Documented by: Naloxone HCl (Narcan) 0.4 mg IVP Q2MPRN PRN PRN Reason: SEE COMMENTS Stop: 05/15/19 17:43 Omeprazole (Prilosec) 20 mg PO DAILY [facility]; Protocol Stop: 05/16/19 09:01 Last Admin: 11/14/18 07:57 Dose: 20 mg Documented by: Pharmacy Profile Note (Patient Taking Own Medication) 0 each PO BID [facility] Stop: 05/15/19 21:01 Last Admin: 11/14/18 07:58 Dose: Not Given Documented by: Prasugrel (Effient) 10 mg PO DAILY [facility] Stop: 05/16/19 09:01 Last Admin: 11/14/18 07:57 Dose: 10 mg Documented by: Ranolazine (Ranexa) 500 mg PO BID [facility] Stop: 05/15/19 21:01 Last Admin: 11/14/18 07:57 Dose: 500 mg Documented by: Rosuvastatin Calcium (Crestor) 40 mg PO [facility] Stop: 05/15/19 21:01 Last Admin: 11/13/18 21:34 Dose: 40 mg Documented by: Tamsulosin HCl (Flomax) 0.4 mg PO [facility]; Protocol Stop: 05/15/19 21:01 Last Admin: 11/13/18 21:34 Dose: 0.4 mg Documented by: Throat Lozenges (Cepacol Sore Throat Lozenge) 1 each MM Q2H PRN PRN Reason: Sore Throat Stop: 05/15/19 18:19 Last Admin: 11/14/18 08:01 Dose: 1 each Documented by: Vitamin D (Vitamin D) 1,000 unit PO DAILY [facility] Stop: 05/15/19 20:31 Last Admin: 11/14/18 07:57 Dose: Not Given Documented by: Laboratory Tests 11/13/18 11/13/18 11/14/18 13:43 20:04 06:53 Creatinine 0.90 Troponin I < 0.03 < 0.03 < 0.03 - Imaging and Cardiology Chest Xray: report reviewed Echo: pending, report reviewed Cardiac cath: report reviewed - EKG Interpretation EKG results cardiology: personally reviewed (ECG with SR, HR 75. Non-specific ST and T wave abnormalities noted.), other (Telemetry reviewed with average HR previous 12 hours noted to be 72, SR. PVCs, PACs noted.) Consult Discharge Plan - Plan [facility]errals: [facility]Primary Care Provider[facility] -
[2018-11-14 11:40] VITALS: BP 130/68
--- NOTE | 2018-11-14 12:43 | Discharge Summary ---
- NOTES TO OUTPATIENT PROVIDER Notes to Outpatient Provider: Mr. Taylor presented to the ED complaining of chest tightness with a URI. Troponin's were within normal limits. Cardiology was consulted. Follow up with [facility] in 1 month. Date of Encounter: 11/14/18 Time of Encounter: 12:39 - Discharge Diagnosis (1) REIS (dyspnea on exertion) Priority: Primary Status: Acute (2) Viral URI Priority: Secondary Status: Acute (3) HTN (hypertension) Priority: Secondary Status: Chronic Qualifiers: Hypertension type: essential hypertension Qualified Code(s): I10 - Essential (primary) hypertension (4) HLD (hyperlipidemia) Priority: Secondary Status: Chronic Qualifiers: Hyperlipidemia type: pure hypercholesterolemia Qualified Code(s): E78.00 - Pure hypercholesterolemia, unspecified; E78.0 - Pure hypercholesterolemia (5) GERD (gastroesophageal reflux disease) Priority: Secondary Status: Chronic Qualifiers: Esophagitis presence: esophagitis presence not specified Qualified Code(s): K21.9 - Gastro-esophageal reflux disease without esophagitis (6) CAD (coronary artery disease) Priority: Secondary Status: Chronic Qualifiers: Coronary Disease-Associated Artery/Lesion type: [place] artery [place] vs. transplanted heart: [place] heart Associated angina: without angina Qualified Code(s): I25.10 - Atherosclerotic heart disease of [place] coronary artery without angina pectoris Hospital course: Mr. Taylor is a 78 year old male with past medical history CAD previous CABG and EF 45%, diabetes, hypertension who presented to ED complaining of chest tightness as well as postnasal drainage and sore throat. Additionally complained of headache ongoing for the past few days. Reported exertional dyspnea and chest tightness but denied chest pain. On admission as heart rate was 108, temperature was 99.1. Rapid strep test was negative. Troponins were less than 0.033. Cardiology was consulted. He underwent TTE. They recommend medical management. Should continue supportive therapy for suspected viral URI. If chest pain develops or symptoms change please return to the ED. Discharge discussed with: patient - Time Spent with Patient Total time spent providing and/or coordinating discharge services: - Discharge Medications Prescriptions: New Lisinopril [Zestril] 5 mg PO DAILY 30 Days #30 tablet Continued Rosuvastatin [Crestor] 40 mg PO HS Ranolazine [Ranexa] 500 mg PO BID Prasugrel [Effient] 10 mg PO DAILY Omeprazole [PriLOSEC] 20 mg PO DAILY Metoprolol [Lopressor] 200 mg PO BID Metformin HCl [Metformin ER Osmotic] 1,000 mg PO BID Loratadine [Allergy Relief] 10 mg PO DAILY PRN PRN Reason: ALLERGIES Isosorbide MONOnitrate (24 HR) [Imdur] 120 mg PO DAILY Insulin Glargine [Lantus] 92 unit SQ HS Ibuprofen [Ibu] 400 mg PO Q6H PRN PRN Reason: pain or inflammation [place]-3/Dha/Epa/Fish Oil [Fish Oil 1,000 mg Softgel] 2 each PO BID GlipiZIDE [Glucotrol] 20 mg PO QAM GlipiZIDE [Glucotrol] 10 mg PO DAILY@1700 Ferrous Gluconate 324 mg PO TID Docusate Sodium [Stool Softener] 200 mg PO DAILY Cyclobenzaprine [Flexeril] 10 mg PO TID PRN PRN Reason: Muscle Spasm Cholecalciferol (Vitamin D3) [Dialyvite Vitamin D3 Max] 50,000 unit PO Q14D Polyvinyl Alcohol [Artificial Tears] 1 drop OP QID Aspirin Enteric Coated [Aspirin EC] 325 mg PO DAILY Ammonium Lactate [Lac-Hydrin Five] 1 gm TP BID amLODIPine [Norvasc] 5 mg PO DAILY Tamsulosin HCl [Flomax] 0.4 mg PO HS Home Medications: Ammonium Lactate [Lac-Hydrin Five] 1 gm TP BID 11/13/18 [History] Aspirin Enteric Coated [Aspirin EC] 325 mg PO DAILY 11/13/18 [History] Cholecalciferol (Vitamin D3) [Dialyvite Vitamin D3 Max] 50,000 unit PO Q14D 11/13/18 [History] Cyclobenzaprine [Flexeril] 10 mg PO TID PRN 11/13/18 [History] Docusate Sodium [Stool Softener] 200 mg PO DAILY 11/13/18 [History] Ferrous Gluconate 324 mg PO TID 11/13/18 [History] GlipiZIDE [Glucotrol] 10 mg PO DAILY@1700 11/13/18 [History] GlipiZIDE [Glucotrol] 20 mg PO QAM 11/13/18 [History] Ibuprofen [Ibu] 400 mg PO Q6H PRN 11/13/18 [History] Insulin Glargine [Lantus] 92 unit SQ HS 11/13/18 [History] Isosorbide MONOnitrate (24 HR) [Imdur] 120 mg PO DAILY 11/13/18 [History] Loratadine [Allergy Relief] 10 mg PO DAILY PRN 11/13/18 [History] Metformin HCl [Metformin ER Osmotic] 1,000 mg PO BID 11/13/18 [History] Metoprolol [Lopressor] 200 mg PO BID 11/13/18 [History] [place]-3/Dha/Epa/Fish Oil [Fish Oil 1,000 mg Softgel] 2 each PO BID 11/13/18 [History] Omeprazole [PriLOSEC] 20 mg PO DAILY 11/13/18 [History] Polyvinyl Alcohol [Artificial Tears] 1 drop OP QID 11/13/18 [History] Prasugrel [Effient] 10 mg PO DAILY 11/13/18 [History] Ranolazine [Ranexa] 500 mg PO BID 11/13/18 [History] Rosuvastatin [Crestor] 40 mg PO HS 11/13/18 [History] Tamsulosin HCl [Flomax] 0.4 mg PO HS 11/13/18 [History] amLODIPine [Norvasc] 5 mg PO DAILY 11/13/18 [History] Lisinopril [Zestril] 5 mg PO DAILY 30 Days #30 tablet 11/14/18 [Rx] Allergies/Adverse Reactions: Allergy/AdvReac Type Severity Reaction Status Date / Time No Known Allergies Allergy Verified 10/16/17 10:23 Date of admission: 11/13/18 16:51 [facility] care physician: [facility] Consults: 11/13/18 18:36 Consult to Cardiology [CONS] Routine Comment: Consulting Provider: [facility] [place] Reason for Consult: Complaint of dyspnea on exertion with chest tightness Pt of Dr. Huerta on max dose antianginal therapy Call Completed: No Discharging clinician: Norma Shafer Anticipated date of discharge: 11/14/18 - Constitutional Vitals: Temp Pulse Resp BP Pulse Ox 98.8 F 68 20 130/68 94 11/14/18 11:29 11/14/18 11:29 11/14/18 11:29 11/14/18 11:29 11/14/18 11:29 General appearance: Present: A&O X 3 Exam: Gen: Vitals noted. No acute distress. Appears comfortable. Eyes: anicteric sclerae, moist conjunctivae; no lid-lag; Pupils equal and reactive to light HENT: Atraumatic; oropharynx clear with moist mucous membranes, postnasal drainage, cervical and submandibular lymphadenopathy Cardiac: RRR, no murmur, +S1/S2. No JVD noted. Pulmonary: CTA bilaterally, no wheezes, rales or rhonchi, equal chest expansion Abdomen: soft, nontender, no guarding. No masses or hepatosplenomegaly MSK: ROM intact, no joint swelling noted Extremities: no edema, nontender calf Skin: Warm, dry and intact. Normal temperature, turgor; no rash, ulcers or subcutaneous nodules Neuro: Moves all extremities, no focal deficits. Psych: Appropriate mood and behavior. A&Ox3 - Patient Status Disposition: Home, Self-Care Condition: Fair Functional capacity at discharge: independent ambulation Overall status at discharge: patient is progressing back to baseline - Discharge Instructions Follow Up With: [facility] [Primary Care Provider[facility] - Collins Huerta DO [Partnered Physician] - (1 month) - Diet and Activity Activity: increase activity as tolerated Diet: low fat, low cholesterol, low salt diet
--- NOTE | 2018-11-17 15:34 | Electrocardiograph Report ---
[place] [id number] Test Date: 2018-11-13 Pat Name: Frandy Taylor Department: EXAM8 Room: 2A23 Gender: Registered Sales Assistant: : [id number] Requested By: Brendon Foster Order Number: [id number] Reading MD: Gilmar Forte Measurements Intervals [place] Rate: 75 P: 26 [place]: 204 QRS: -10 QRSD: 111 T: 109 QT: 395 QTc: 442 Interpretive Statements Sinus rhythm Abnormal R-wave progression, early transition Inferior infarct, old Abnormal lateral Q waves Electronically Signed On 11-17-2018 15:32:45 EDT by Gilmar Forte
== END 2018-11-14 14:43 | disposition home or self-care (01) ==
LOC: EMEROOARM 12:27 → 2ANU 12:27 → SUATTDRO 16:51 → 2ANU 17:02
PROVIDERS: ADMIT Internal Medicine; ATTEND Internal Medicine